=== PATIENT | female | born 1965 | race Caucasian/White ===

== ENCOUNTER 2016-09-04 22:40 | Inpatient (IN) | payer OTHER ==
[~2016-09-04] VITALS: Ht 152.4 cm; Wt 65.2 kg
[2016-09-04] MEDS: DOCUSATE SODIUM 100 MG/10 ML UDC G-TUBE SCH
[2016-09-04 22:40] VITALS: BP 177/89; PULSE 52; RESP 16; TEMP 98.6; O2SAT 100
[2016-09-04] MEDS ORDERED: PROPOFOL 1000 MG/100 ML INJ 100 ML ONE (22:49)
[2016-09-04 22:51] VITALS: O2SAT 100
--- NOTE | 2016-09-04 23:03 | PD ---
HPI Chief Complaint: Stroke Alert Time Seen by Provider: 22:51 Travel History International Travel<30 days: No Contact w/Intl Traveler<30days: No Traveled to known affect area: No History of Present Illness HPI The patient is a 50 year old female who presents to the [facility] emergency department with a history of reportedly having a severe headache that began prior to arrival at [facility] emergency department. The patient arrives intubated, therefore the patient's history is obtained through communications with that facility and the paperwork that was provided by them. The patient's headache was reportedly severe and associated with nausea and vomiting and a decreased level of consciousness, therefore the patient was intubated. The patient underwent a CT scan of the brain that showed a subarachnoid hemorrhage. The patient was accepted for transfer to this facility by Dr. Oswald, the neurosurgeon on-call. According to air 1, the transport helicopter that brought the patient in the patient's blood pressure has had a systolic between 112 and 150. The patient was given a dip revamp bolus for sedation and Ativan for sedation en route to this facility. The patient has not been placed on any blood pressure medication. The patient is unable to provide any other history as she is intubated. The patient is becoming more awake on the ventilator on my arrival to the room. The patient is moving all extremities equally. The patient is breathing about the events. The patient has purposeful motor activity noted with the left upper extremity where she is attempting to reach up to the endotracheal tube. [facility] Past Medical History Narrative Medical The patient's past medical history is reportedly none, except having a gluten allergy. Past Surgical History Narrative Surgical The patient's past surgical history is not able to be obtained. Social History Alcohol Use: Yes (occasional) Tobacco Use: No Substance Use: No Allergies-Medications (Allergen,Severity, Reaction): Coded Allergies: Gluten Flour (Verified Allergy, Unknown, 09/04/16) Narrative Medication None Review of Systems ROS Limitations: Intubated Physical Exam Narrative General: The patient is a well-developed well-nourished female, intubated prior to arrival, in no acute distress. Head and Neck exam: Head is normocephalic atraumatic. Eyes: Pupils are equal round and reactive to light. The patient is not following commands. Therefore, extraocular motion testing was able to be accomplished. Nose: Midline septum with pink mucous membranes Mouth: Dentition unremarkable. Moist mucus membranes. Posterior oropharynx is not erythematous. No tonsillar hypertrophy. Uvula midline. Airway patent. Neck: No palpable lymphadenopathy. No nuchal rigidity. No thyromegaly. Cardiovascular: Sinus bradycardia in the 40s without murmurs, gallops, or rubs. Lungs: Clear to auscultation bilaterally. No wheezes, rhonchi, or rales. Equal breath sounds are noted to be being assisted by ventilator. The patient is noted to have breathing about the event, occasional coughing against the endotracheal tube. Abdomen: Soft, without tenderness to palpation in all 4 quadrants of the abdomen. No guarding, rebound, or rigidity. Normal bowel sounds are audible. Extremities: No clubbing, cyanosis, or edema. 2+ pulses in all 4 extremities. Neurologic Exam: The patient has spontaneous motor activity noted of bilateral upper and lower extremities on examination. The patient has no visible facial asymmetry. Formal neurologic testing otherwise is unable to be accomplished in this patient that was recently sedated with Ativan. The patient is not following commands on exam. Skin Exam: No rash noted. Intact skin that is warm and dry. Data Data Last Documented VS Vital Signs Date Time Temp Pulse Resp B/P Pulse Ox O2 Delivery O2 Flow Rate FiO2 09/04/16 22:51 100 100 09/04/16 22:40 98.6 52 16 177/89 Orders Nicardipine Inj (Cardene Inj) (09/04/16 22:49) Propofol 1000 Mg/100 Ml Inj (Diprivan 10 (09/04/16 22:49) Propofol 1000 Mg/100 Ml Inj (Diprivan 10 (09/04/16 23:00) ^ Infusion (09/04/16 22:51) RASS (09/04/16 22:51) Neurological Rass Scale YANCI.Q2H (09/04/16 22:51) Cta Brain W Iv Contrast W 3d (09/04/16 ) Ed Urine Pregnancytest Poc (09/04/16 22:51) Admit Order (Ed Use Only) (09/04/16 22:56) Invasive Rad Dept Consult (09/04/16 ) Csf Cell Count + Differential (09/04/16 22:57) Glucose, Csf (09/04/16 22:57) Total Protein, Csf (09/04/16 22:57) Csf Culture And Gram Stain (09/04/16 22:57) Consult Neurosurgery (09/04/16 ) MDM Medical Decision Making Medical Screen Exam Complete: Yes Emergency Medical Condition: Yes Medical Record Reviewed: Yes Differential Diagnosis Subarachnoid hemorrhage related to hypertension, versus aneurysm Narrative Course During the course of the patients emergency department visit, the patients history, examination, and differential diagnosis were reviewed. The patient had IV access obtained and blood work sent for analysis prior to arrival at the other facility. The patient was placed on a dust control engineer with oximetry and blood pressure monitoring. The patient was started on a Cardene drip and propofol for sedation per the recommendations of Dr. Oswald. Dr. Oswald and Dr. Garza arrived at the patient's bedside shortly after the patient arrived in the emergency department. A white count of 14.5, hemoglobin 14.5, platelets 273 with neutrophils 43.6, lymphocytes 42.7, glucose is 106, BUN/creatinine 10, creatinine 0.7, sodium 138 , potassium 3.4, chloride 105, bicarbonate 21. PT 11.8, PTT 19.4, INR 1.12 Radiology studies were reviewed from the other facility and remarkable for a CT scan of the brain showing diffuse bilateral subarachnoid hemorrhage demonstrated in the suprasellar cistern, the sylvian fissures, and the prepontine cistern and extending over the convexities more on the left than the right. There is mild hydrocephalus noted. A CTA of the brain was ordered per the recommendations of Dr. Oswald. The patient was admitted to the hospital in critical condition and sent to a bed under the care of the weekend anchor, Dr. Garza. A consultation was also placed to Dr. Oswald. Physician Communication Physician Communication The patient's case was discussed with Dr. Garza and Dr. Oswald in the emergency department. Diagnosis Primary Impression: Subarachnoid hemorrhage Admitting Information Admitting Physician Requests: Admit Rosa Celeste MD Sep 04, 2016 23:03
--- NOTE | 2016-09-04 23:05 | PD.CONS ---
HPI Service neurosurgery Consult Requested By Dr Celeste Reason for Consult Subarachnoid hemorrhage Primary Care Physician Unknown History of Present Illness This is a 67 years old female was transferred to [facility] from [facility] for a subarachnoid hemorrhage. She suddenly developed severe headache and then vomited. No seizure activity. No tongue bitting. No tonic clonic movements. no incontinence of stool or urine. The patient's headache reportedly became more severe and associated with nauseas, vomiting and a decreased level of consciousness, therefore the patient was intubated. She does not follow commands, but moves all 4 extremities purposefully. She underwent a CT scan of the brain at [facility] shows extensive subarachnoid and intraventricular hemorrhage with early obstructive hydrocephalus Review of Systems ROS Limitations: Clinical Condition, Intubated, Altered Mental Status Past Family Social History Allergies: Coded Allergies: Gluten Flour (Verified Allergy, Unknown, 09/04/16) Past Medical History None Past Surgical History None Reported Medications None Active Ordered Medications Current Medications Medications (Trade) Dose Ordered Sig/Van Route PRN Reason Start Time Stop Time Status Last Admin Dose Admin Propofol (Diprivan 1000 Mg/100ml Inj) 100 ml @ 0 mls/hr TITRATE IV 09/04/16 23:00 09/04/16 23:24 IV Flush (NS Flush) 2 ml UNSCH PRN IV FLUSH FLUSH AFTER USING IV ACCESS 09/04/16 23:15 IV Flush (NS Flush) 2 ml BID IV FLUSH 09/05/16 09:00 Acetaminophen (Tylenol) 650 mg Q6H PRN PO PAIN 1-10 AND/OR FEVER >101F 09/04/16 23:15 Morphine Sulfate (Morphine Inj) 2 mg Q2H PRN IV PAIN SCALE 6 TO 10 09/04/16 23:15 Famotidine (Pepcid Inj) 20 mg Q12HR IV PUSH 09/05/16 09:00 Artificial Tears (Tears Naturale Opth Soln) 1 drop TID EACH EYE 09/05/16 09:00 Ondansetron HCl (Zofran Inj) 4 mg Q6H PRN IV NAUSEA OR VOMITING 09/04/16 23:15 Metoclopramide HCl (Reglan Inj) 10 mg Q6H PRN IV NAUSEA OR VOMITING 09/04/16 23:15 Docusate Sodium (Colace Liq) 100 mg Q12H G-TUBE 09/04/16 00:00 Miscellaneous Information 1 Q361D XX 09/04/16 23:15 Chlorhexidine Gluconate (Chlorhexidine 2% Cloth) 3 pack Taper DAILY@04 TOP 09/05/16 04:00 09/01/17 03:59 09/05/16 00:14 Chlorhexidine Gluconate 3 pack 3 pack UNSCH PRN TOP HYGIENIC CARE 09/04/16 23:15 Nicardipine HCl/ Sodium Chloride (Cardene Inj/NS 250 ml Inj) 260 ml @ 0 mls/hr TITRATE IV 09/04/16 23:15 Hydralazine HCl 20 mg 20 mg Q4H PRN IV PUSH SBP>160, DBP>90 09/04/16 23:15 Sodium Chloride 500 ml @ 30 mls/hr Q16H IV 09/05/16 00:15 09/05/16 00:15 Fentanyl Citrate 250 ml @ 0 mls/hr TITRATE IV 09/05/16 00:30 09/05/16 00:20 Levetriacetam 100 ml @ 400 mls/hr Q12H IV 09/05/16 12:00 Sodium Chloride 1,000 ml @ 999 mls/hr Q1H1M IV 09/05/16 01:15 09/05/16 02:15 Sodium Chloride 1,000 ml @ 150 mls/hr Q6H40M IV 09/05/16 02:15 Potassium Chloride 100 ml @ 50 mls/hr Q2H PRN IV For Potassium 2.8 - 3.2 mEq/L 09/05/16 01:45 Potassium Chloride (KCl 20 Meq Premix Inj) 100 ml @ 50 mls/hr Q2H PRN IV For Potassium 2.8 - 3.2 mEq/L 09/05/16 01:45 Potassium Chloride 40 meq 40 meq UNSCH PRN PO/TUBE For Potassium 3.3 - 3.5 mEq/L 09/05/16 01:45 Potassium Chloride 100 ml @ 25 mls/hr UNSCH PRN IV For Potassium 3.3 - 3.5 mEq/L 09/05/16 01:45 Potassium Chloride 100 ml @ 50 mls/hr Q2H PRN IV For Potassium 3.3 - 3.5 mEq/L 09/05/16 01:45 Magnesium Sulfate/ Sodium Chloride (Magnesium Sulfate Inj/NS Inj) 100 ml @ 50 mls/hr UNSCH PRN IV For Magnesium 0.9 - 1.1 mg/dL 09/05/16 01:45 Magnesium Oxide 800 mg 800 mg UNSCH PRN PO For Magnesium 1.2 - 1.6 mg/dL 09/05/16 01:45 Magnesium Sulfate/ Sodium Chloride (Magnesium Sulfate Inj/NS Inj) 100 ml @ 50 mls/hr UNSCH PRN IV For Magnesium 1.2 - 1.6 mg/dL 09/05/16 01:45 Potassium Phosphate 2000 mg 2,000 mg Q4H PRN PO For Phosphorus < 2.5 mg/dL 09/05/16 01:45 Sodium Phosphate/ Sodium Chloride (Sodium Phosphate Inj/NS 250 ml Inj) 250 ml @ 42 mls/hr UNSCH PRN IV For Phosphorus < 2.5 mg/dL 09/05/16 01:45 Potassium Chloride (KCl 40 Meq/30 ml Liq) 40 meq UNSCH PRN PO/TUBE SEE LABEL COMMENTS 09/05/16 01:45 Potassium Phosphate 2000 mg 2,000 mg UNSCH PRN PO/TUBE SEE LABEL COMMENTS 09/05/16 01:45 Potassium Phosphate/Sodium Chloride (Potassium Phosphate Inj/NS 250 ml Inj) 260 ml @ 42 mls/hr UNSCH PRN IV SEE LABEL COMMENTS 09/05/16 01:45 Nimodipine (Nimotop) 60 mg Q4HR PO 09/05/16 04:00 UNV Pravastatin Sodium (Pravachol) 40 mg DAILY PO 09/05/16 09:00 UNV Family History Her brother of hemorrhagic stroke at late 40s, possible aneurysm Physical Exam Vital Signs Vital Signs Date Time Temp Pulse Resp B/P Pulse Ox O2 Delivery O2 Flow Rate FiO2 09/04/16 22:51 100 100 09/04/16 22:40 98.6 52 16 177/89 100 Physical Exam The patient is intubated and sedated. Localizes to painful stimulii with all 4 extremities. Cranial Nerves: Pupils 2-3 equal, round, reactive to light. Eyes appear conjugated. There was no nystagmus, no papilledema. Face musculature appeared symmetrical at rest. Face sensation, olfaction, visual bundy, and hearing cannot be adequately assessed due to his neurological condition. The patient has a corneal reflex. The sternocleidomastoid and trapezius are symmetrical. Cervical Spine: She has nuchal rigidity Motor: His muscle tone and bulk are normal. He moves purposefully all 4 extremities symmetrically. Reflexes: Deep tendon reflexes are 1+ and symmetrical in the biceps, triceps, and brachioradialis, bilaterally, in the upper extremities. In the lower extremities, the patellar and ankles are 1+, bilaterally. There is a bilateral plantar flexion response. There is no clonus or other abnormal reflexes noted. Sensory: On examination there is response to painful stimuli, localizing with both upper and lower extremities. Cerebellar: Examination cannot be adequately assessed due to the patient's neurological condition. Imaging CT brain shows extensive SAH with intraventriculr hemorrhage and early hydrocephalus Assessment and Plan Assessment and Plan 67 year olf female, subarachnid hemorrhage Arce Nixon grade 4, Huertas grade 4 Attending Statement I have reviewed her clinical and further studies. neuro checks in a serial fashion. CTA brain stat to rule out aneurysm A follow-up CT of the head will be obtained in 24 hours. There is oclusion of the ventricular system and I recommend a ventriculostomy catheter. I have discussed with her the details including the step-by- step details of the surgical procedure, its indications, alternatives, risks, and potential complications. Risks and potential complications include, but are not limited to, infection, blood loss, CSF leak, partial or complete loss of sight in one or both eyes, paresis, paralysis, permanent pain or difficulty swallowing, loss of bowel or bladder function, complications from anesthesia, blood clot, stroke, myocardial infarction, or even . Consult interventional neuroradiologist for a cerebral angiography DEBRA. I have called the interventional neuroradiologist concrete handler, Dr Alex Lara and requested a STAT cerebral angiography to be done DEBRA after the CTA, with possible coiling of her aneurysm Respiratory. Full mechanical ventilation in assist control mode of mechanical ventilation, pulmonary toilette, nasotracheal suction, and breathing treatments with nebulizers. Hypertension As needed Cardene to maintain systolic blood pressure less than 150. Chronic anticoagulation. Follow-up coags PT and OT eval Nutrition. NPO Renal. monitor closely urine output, BUN and creatinine Endocrine. Monitor serial Acu checks and SSI for tight control ID monitor for signs of infection Protonix for stress ulcer prophylaxis Vini hose and SCD's for DVT prophylaxis Discussed with critical care, Dr Garza. Further recommendations will be provided depending on the patient clinical evaluation and follow up studies. Jorgito Oswald MD Sep 04, 2016 23:04
[2016-09-04 23:13] VITALS: O2SAT 100
[2016-09-04] MEDS ORDERED: MISCELLANEOUS NURSING INFORMATION XX SCH (23:15)
[2016-09-04] MEDS ORDERED: RESP: ALBUTEROL 2.5 MG/IPRATROPIUM 0.5 MG NEB (PRN) INH (23:15)
[2016-09-04] MEDS ORDERED: NICARDIPINE IV SCH ×2 (23:15)
[2016-09-04] MEDS ORDERED: ACETAMINOPHEN 325 MG TAB PO PRN (23:15)
[2016-09-04] MEDS ORDERED: DEXTROSE 5% IV SCH ×2 (23:15)
[2016-09-04] MEDS ORDERED: CHLORHEXIDINE GLUCONATE 2 % 1 PACK (2 CLOTHS) TOP PRN (23:15)
[2016-09-04] MEDS ORDERED: SODIUM CHLORIDE 0.9% FLUSH 5 ML FLUSH IV FLUSH PRN (23:15)
[2016-09-04] MEDS ORDERED: MORPHINE SULFATE 4 MG/ML INJ IV PRN (23:15)
[2016-09-04] MEDS ORDERED: ONDANSETRON HCL 4 MG/2 ML VIAL IV PRN (23:15)
[2016-09-04] MEDS ORDERED: hydrALAZINE HCL 20 MG/ML VIAL IV PUSH PRN (23:15)
[2016-09-04] MEDS ORDERED: METOCLOPRAMIDE HCL 10 MG/2 ML VIAL IV PRN (23:15)
[2016-09-04] MEDS ORDERED: WATER IV SCH ×2 (23:15)
[2016-09-04] MEDS: PROPOFOL 1000 MG/100 ML INJ 100 ML IV SCH (23:24)
--- NOTE | 2016-09-04 23:29 | HHI.HP ---
HPI Service Critical Care Medicine Primary Care Physician Unknown Admission Diagnosis Subarachnoid hemorrhage Diagnosis: Travel History International Travel<30 Days: No Contact w/Intl Traveler <30 Da: No Traveled to Known Affected Are: No History of Present Illness 50 year old female who presents to the [facility] emergency department with a severe headache that began prior to arrival at [facility] emergency department. The patient's headache was reportedly severe and associated with nausea and vomiting and a decreased level of consciousness, therefore the patient was intubated. She underwent a CT scan of the brain that showed a subarachnoid hemorrhage and was accepted for transfer by Dr. Oswald, the neurosurgeon on-call. Review of Systems ROS Unable to obtain patient is sedated and intubated Past Family Social History Allergies: Coded Allergies: Gluten Flour (Verified Allergy, Unknown, 09/04/16) Past Medical History None Past Surgical History None Reported Medications Reported Meds & Active Scripts Active Active Prescriptions or Reported Medications Unobtainable Active Ordered Medications Current Medications Medications (Trade) Dose Ordered Sig/Van Route PRN Reason Start Time Stop Time Status Last Admin Dose Admin Propofol (Diprivan 1000 Mg/100ml Inj) 100 ml @ 0 mls/hr TITRATE IV 09/04/16 23:00 09/04/16 23:24 IV Flush (NS Flush) 2 ml UNSCH PRN IV FLUSH FLUSH AFTER USING IV ACCESS 09/04/16 23:15 IV Flush (NS Flush) 2 ml BID IV FLUSH 09/05/16 09:00 Acetaminophen (Tylenol) 650 mg Q6H PRN PO PAIN 1-10 AND/OR FEVER >101F 09/04/16 23:15 Morphine Sulfate (Morphine Inj) 2 mg Q2H PRN IV PAIN SCALE 6 TO 10 09/04/16 23:15 Famotidine (Pepcid Inj) 20 mg Q12HR IV PUSH 09/05/16 09:00 Artificial Tears (Tears Naturale Opth Soln) 1 drop TID EACH EYE 09/05/16 09:00 Ondansetron HCl (Zofran Inj) 4 mg Q6H PRN IV NAUSEA OR VOMITING 09/04/16 23:15 Metoclopramide HCl (Reglan Inj) 10 mg Q6H PRN IV NAUSEA OR VOMITING 09/04/16 23:15 Docusate Sodium (Colace Liq) 100 mg Q12H G-TUBE 09/04/16 00:00 Miscellaneous Information 1 Q361D XX 09/04/16 23:15 Chlorhexidine Gluconate (Chlorhexidine 2% Cloth) 3 pack Taper DAILY@04 TOP 09/05/16 04:00 09/01/17 03:59 09/05/16 00:14 Chlorhexidine Gluconate 3 pack 3 pack UNSCH PRN TOP HYGIENIC CARE 09/04/16 23:15 Nicardipine HCl/ Sodium Chloride (Cardene Inj/NS 250 ml Inj) 260 ml @ 0 mls/hr TITRATE IV 09/04/16 23:15 Hydralazine HCl 20 mg 20 mg Q4H PRN IV PUSH SBP>160, DBP>90 09/04/16 23:15 Sodium Chloride 500 ml @ 30 mls/hr Q16H IV 09/05/16 00:15 09/05/16 00:15 Fentanyl Citrate 250 ml @ 0 mls/hr TITRATE IV 09/05/16 00:30 09/05/16 00:20 Levetriacetam 100 ml @ 400 mls/hr Q12H IV 09/05/16 12:00 Sodium Chloride 1,000 ml @ 999 mls/hr Q1H1M IV 09/05/16 01:15 09/05/16 02:15 Sodium Chloride 1,000 ml @ 150 mls/hr Q6H40M IV 09/05/16 02:15 Potassium Chloride 100 ml @ 50 mls/hr Q2H PRN IV For Potassium 2.8 - 3.2 mEq/L 09/05/16 01:45 Potassium Chloride (KCl 20 Meq Premix Inj) 100 ml @ 50 mls/hr Q2H PRN IV For Potassium 2.8 - 3.2 mEq/L 09/05/16 01:45 Potassium Chloride 40 meq 40 meq UNSCH PRN PO/TUBE For Potassium 3.3 - 3.5 mEq/L 09/05/16 01:45 Potassium Chloride 100 ml @ 25 mls/hr UNSCH PRN IV For Potassium 3.3 - 3.5 mEq/L 09/05/16 01:45 Potassium Chloride 100 ml @ 50 mls/hr Q2H PRN IV For Potassium 3.3 - 3.5 mEq/L 09/05/16 01:45 Magnesium Sulfate/ Sodium Chloride (Magnesium Sulfate Inj/NS Inj) 100 ml @ 50 mls/hr UNSCH PRN IV For Magnesium 0.9 - 1.1 mg/dL 09/05/16 01:45 Magnesium Oxide 800 mg 800 mg UNSCH PRN PO For Magnesium 1.2 - 1.6 mg/dL 09/05/16 01:45 Magnesium Sulfate/ Sodium Chloride (Magnesium Sulfate Inj/NS Inj) 100 ml @ 50 mls/hr UNSCH PRN IV For Magnesium 1.2 - 1.6 mg/dL 09/05/16 01:45 Potassium Phosphate 2000 mg 2,000 mg Q4H PRN PO For Phosphorus < 2.5 mg/dL 09/05/16 01:45 Sodium Phosphate/ Sodium Chloride (Sodium Phosphate Inj/NS 250 ml Inj) 250 ml @ 42 mls/hr UNSCH PRN IV For Phosphorus < 2.5 mg/dL 09/05/16 01:45 Potassium Chloride (KCl 40 Meq/30 ml Liq) 40 meq UNSCH PRN PO/TUBE SEE LABEL COMMENTS 09/05/16 01:45 Potassium Phosphate 2000 mg 2,000 mg UNSCH PRN PO/TUBE SEE LABEL COMMENTS 09/05/16 01:45 Potassium Phosphate/Sodium Chloride (Potassium Phosphate Inj/NS 250 ml Inj) 260 ml @ 42 mls/hr UNSCH PRN IV SEE LABEL COMMENTS 09/05/16 01:45 Nimodipine (Nimotop) 60 mg Q4HR PO 09/05/16 04:00 UNV Pravastatin Sodium (Pravachol) 40 mg DAILY PO 09/05/16 09:00 UNV Family History Her brother of hemorrhagic stroke at late 40s Social History Negative 3 Physical Exam Vital Signs Vital Signs Date Time Temp Pulse Resp B/P Pulse Ox O2 Delivery O2 Flow Rate FiO2 09/04/16 23:13 100 50 09/04/16 22:51 100 100 09/04/16 22:40 98.6 52 16 177/89 100 09/04/16 22:40 16 100 Ventilator Physical Exam GENERAL: Well-nourished, well-developed critically ill patient in coma SKIN: Warm and dry. HEAD: Normocephalic. EYES: No scleral icterus. No injection or drainage. Pupils are 2 and reactive NECK: Supple, trachea midline. No JVD or lymphadenopathy. CARDIOVASCULAR: Regular rate and rhythm without murmurs, gallops, or rubs. RESPIRATORY: Breath sounds equal bilaterally. No accessory muscle use. GASTROINTESTINAL: Abdomen soft, non-tender, nondistended. MUSCULOSKELETAL: No cyanosis, or edema. BACK: Nontender without obvious deformity. No CVA tenderness. EXTREMITIES: Laboratory Laboratory Tests Test 09/04/16 09/04/16 09/05/16 09/05/16 23:15 23:30 00:10 01:22 Nasal Screen MRSA (PCR) NEGATIVE CSF Volume (Tube 1) 2.0 ML CSF Supernatant Color (tube 1) CLEAR CSF Gross Blood (Tube 1) 4+ CSF WBC (Tube 1) 170 /MM3 CSF RBC (Tube 1) 133092 /MM3 CSF Neutrophils 41 % CSF Lymphocytes 48 % CSF Eosinophils 11 % CSF Glucose 80 MG/DL CSF Total Protein 393.6 MG/DL White Blood Count 15.2 TH/MM3 Red Blood Count 3.67 MIL/MM3 Hemoglobin 11.4 GM/DL Hematocrit 33.3 % Mean Corpuscular Volume 90.8 FL Mean Corpuscular Hemoglobin 31.0 PG Mean Corpuscular Hemoglobin 34.2 % Concent Red Cell Distribution Width 12.4 % Platelet Count 173 TH/MM3 Mean Platelet Volume 8.1 FL Prothrombin Time 12.3 SEC Prothromb Time International 1.1 RATIO Ratio Activated Partial 24.7 SEC Thromboplast Time Sodium Level 142 MEQ/L Potassium Level 3.1 MEQ/L Chloride Level 109 MEQ/L Carbon Dioxide Level 23.1 MEQ/L Anion Gap 10 MEQ/L Blood Urea Nitrogen 9 MG/DL Creatinine 0.70 MG/DL Estimat Glomerular Filtration 89 ML/MIN Rate Random Glucose 138 MG/DL Serum Osmolality 304 MOSM/KG Calcium Level 6.7 MG/DL Protein Corrected Calcium 7.7 MG/DL Phosphorus Level 2.0 MG/DL Magnesium Level 1.4 MG/DL Total Bilirubin 1.3 MG/DL Aspartate Amino Transf 33 U/L (AST/SGOT) Alanine Aminotransferase 23 U/L (ALT/SGPT) Alkaline Phosphatase 54 U/L Total Protein 5.1 GM/DL Albumin 2.9 GM/DL Blood Type O POSITIVE Antibody Screen NEGATIVE Blood Bank Comment Blood Gas Puncture Site MALENA Blood Gas Patient Temperature 98.6 Blood Gas HCO3 22 mmol/L Blood Gas Base Excess -1.8 mmol/L Blood Gas Oxygen Saturation 98 % Arterial Blood pH 7.40 Arterial Blood Partial 37 mmHg Pressure CO2 Arterial Blood Partial 194 mmHg Pressure O2 Arterial Blood Oxygen Content 16.6 Vol % Arterial Blood 0.8 % Carboxyhemoglobin Arterial Blood Methemoglobin 1.0 % Blood Gas Hemoglobin 11.8 G/DL Oxygen Delivery Device VENTILATOR Blood Gas Ventilator Setting AC14/450/+5 Blood Gas Inspired Oxygen 40 % Assessment and Plan Problem List: (1) Subarachnoid hemorrhage ICD Code: I60.9 Status: Acute Assessment and Plan Respiratory failure - Intubated for an airway protection - No weaning until neurologically improved - No weaning until ICP well-controlled - Attempt normocapnia - CXR and ABG daily Subarachnoid hemorrhage - Arce and Cardoza grade IV - Huertas grade IV - Blood pressure control - CT angiogram a.m. - Further intervention pending based on angiographic findings - Nimodipine - Pravachol - Daily TCD's Brain edema - Due to above - External ventricular drain in place to monitor - Hypertonic saline - 23% sodium chloride when necessary Hydrocephalus - EVD in place - Further management per neurosurgeon Hypertension - Nicardipine drip - SBP goal less than 140 DVT GI prophylaxis - Teds SCDs Pepcid Critical Care: The total critical care time was 55 minutes. Time to perform other separately billable procedures was not included in the critical care time. Ivan Garza MD Sep 04, 2016 23:28
[2016-09-04] MEDS ORDERED: MANNITOL INJ 50 ML ONE (23:48)
[2016-09-05] VITALS (11 sets, daily range): BP systolic 137–170; BP diastolic 63–68; PULSE 44–73; RESP 14–17; TEMP 93.1–98.5; O2SAT 100
[2016-09-05] MEDS ORDERED: fentaNYL CITRATE 250 MCG/5 ML AMP IV PUSH ONE
[2016-09-05] MEDS: CHLORHEXIDINE GLUCONATE 2 % 1 PACK (2 CLOTHS) TOP SCH (00:14)
[2016-09-05] MEDS: 3% SALINE INJ 500 ML IV SCH ×2 (00:15→20:01)
[2016-09-05 00:17] LABS: GROSS BLOOD TUBE #1 4+ (0); SUPERNATE COLOR TUBE #1 CLEAR (CLEAR)
[2016-09-05 00:18] LABS: WBC TUBE #1 170 /MM3 (0-10)
[2016-09-05] MEDS: fentaNYL 2,500 MCG/NS 250 ML IV SCH ×2 (00:20→09:05)
[2016-09-05 00:44] LABS: CSF EOSINOPHILS 11 %; CSF LYMPHOCYTES 48 %; CSF NEUTROPHILS 41 %
[2016-09-05] MEDS ORDERED: levETIRAcetam 1000 MG INJ 100 ML IV ONE (00:45)
[2016-09-05] MEDS ORDERED: SODIUM CHLOR 0.9% 1000 ML INJ 1,000 ML IV SCH ×2 (01:15→13:27)
[2016-09-05 01:25] LABS: APTT (PATIENT) 24.7 SEC (24.3-30.1); INTERNATIONAL NORMALIZED RATIO 1.1 RATIO; PROTHROMBIN TIME - PATIENT 12.3 SEC (9.8-11.6)
[2016-09-05 01:28] LABS: BLOOD GAS BASE EXCESS -1.8 mmol/L (-2-2); BLOOD GAS CARBOXYHEMOGLOBIN 0.8 % (0-4); BLOOD GAS HCO3 22 mmol/L (22-26); BLOOD GAS O2 HGB SATURATION 98 % (90-100); BLOOD GAS OXYGEN CONTENT 16.6 Vol % (12.0-20.0); BLOOD GAS PCO2 37 mmHg (38-42); BLOOD GAS PO2 194 mmHg (61-120); BLOOD GAS TOTAL HGB 11.8 G/DL (12.0-16.0); CRITICAL VALUE NO; DRAW SITE ALINE; FIO2 40 %; OXYGEN DEVICE VENTILATOR; STAT NO; TEMP CORR TO 98.6; ULNAR PULSE PRESENT; VENT SETTINGS AC14/450/+5
[2016-09-05 01:32] LABS: HEMATOCRIT 33.3 % (35.0-46.0); MEAN CELL VOLUME 90.8 FL (80.0-100.0); MEAN CORPUSCULAR HGB CONC 34.2 % (32.0-36.0); PLATELET COUNT 173 TH/MM3 (150-450); RED BLOOD COUNT 3.67 MIL/MM3 (4.00-5.30); RED CELL DISTRIBUTION WIDTH 12.4 % (11.6-17.2); REVIEW FLAG FINAL; WHITE BLOOD COUNT 15.2 TH/MM3 (4.0-11.0)
[2016-09-05 01:33] LABS: BICARBONATE 23.1 MEQ/L (21.0-32.0); CALCIUM-PROTEIN CORRECTED 7.7 MG/DL (8.5-10.1); MAGNESIUM 1.4 MG/DL (1.5-2.5); POTASSIUM 3.1 MEQ/L (3.5-5.1); TOTAL BILIRUBIN ADULT 1.3 MG/DL (0.2-1.0)
[2016-09-05] MEDS ORDERED: LIDOCAINE HCL 2% 100 MG/5 ML SYRINGE ONE ×2 (01:44→10:03)
[2016-09-05] MEDS ORDERED: ATROPINE SULFATE 1 MG/10 ML SYRINGE ONE ×2 (01:44→10:03)
[2016-09-05] MEDS ORDERED: EPINEPHrine HCL (1:10,000) 1 MG/10 ML SYRINGE ONE ×2 (01:44→10:03)
[2016-09-05] MEDS ORDERED: POTASSIUM CHLOR 40 MEQ PREMIX 100 ML IV PRN (01:45)
[2016-09-05] MEDS ORDERED: POTASSIUM PHOSPHATE MONOBASIC 500 MG TAB PO/TUBE PRN (01:45)
[2016-09-05] MEDS ORDERED: MAGNESIUM SULFATE INJ 4 GM in SODIUM CHLORIDE 0.9% INJ 92 ML IV PRN (01:45)
[2016-09-05] MEDS ORDERED: POTASSIUM PHOSPHATE MONOBASIC 500 MG TAB PO PRN (01:45)
[2016-09-05] MEDS ORDERED: SODIUM PHOSPHATE INJ 30 MMOL in SODIUM CHLOR 0.9% 250 ML INJ 240 ML IV PRN (01:45)
[2016-09-05] MEDS ORDERED: MAGNESIUM SULFATE INJ 2 GM in SODIUM CHLORIDE 0.9% INJ 96 ML IV PRN (01:45)
[2016-09-05] MEDS ORDERED: MAGNESIUM OXIDE 400 MG TAB PO PRN (01:45)
[2016-09-05] MEDS ORDERED: POTASSIUM PHOSPHATE INJ 30 MMOL in SODIUM CHLOR 0.9% 250 ML INJ 250 ML IV PRN (01:45)
[2016-09-05] MEDS ORDERED: POTASSIUM CL 40 MEQ/30 ML LIQ UDC PO/TUBE PRN ×2 (01:45)
[2016-09-05] MEDS ORDERED: POTASSIUM CHLOR 20 MEQ PREMIX 100 ML IV PRN ×3 (01:45→15:30)
[2016-09-05] MEDS ORDERED: IOHEXOL 350 MG/ML 10 ML VIAL (for RAD DIAG) IV ONE (01:58)
--- NOTE | 2016-09-05 02:18 | PD.PROCEDR ---
Procedure Note Procedure Central line A time-out was completed verifying correct patient, procedure, site, positioning , and special equipment if applicable. The patient was placed in a dependent position appropriate for central line placement based on the vein to be cannulated. The patients right neck was prepped and draped in sterile fashion. 1% Lidocaine was used to anesthetize the surrounding skin area. A triple lumen 9 -Faroese Cordis catheter was introduced into the the internal jugular vein using the Seldinger technique and under ultrasound guidance. The catheter was threaded smoothly over the guide wire and appropriate blood return was obtained. Each lumen of the catheter was evacuated of air and flushed with sterile saline. The catheter was then sutured in place to the skin and a sterile dressing applied. Perfusion to the extremity distal to the point of catheter insertion was checked and found to be adequate. Estimated Blood Loss: 1ml The patient tolerated the procedure well and there were no complications. Ivan Garza MD Sep 05, 2016 02:18
--- NOTE | 2016-09-05 02:18 | PD.PROCEDR ---
Procedure Note Procedure Arterial line A time-out was completed verifying correct patient, procedure, site, positioning , and special equipment if applicable. Allens test was performed to ensure adequate perfusion. The patients right wrist was prepped and draped in sterile fashion. 1% Lidocaine was used to anesthetize the area. A 18G Arrow arterial line was introduced into the radial artery. The catheter was threaded over the guide wire and the needle was removed with appropriate pulsatile blood return. The catheter was then sutured in place to the skin and a sterile dressing applied. Perfusion to the extremity distal to the point of catheter insertion was checked and found to be adequate. Estimated Blood Loss: 1ml The patient tolerated the procedure well and there were no complications. Ivan Garza MD Sep 05, 2016 02:18
[2016-09-05] MEDS ORDERED: NOREPINEPHRINE-DEXTROSE DRIP 250 ML IV ONE (02:57)
[2016-09-05] MEDS ORDERED: NOREPINEPHRINE 4 MG/4 ML AMP ONE (02:59)
--- NOTE | 2016-09-05 03:01 | RADRPT ---
EXAM DATE/TIME: 09/05/2016 01:58 [facility] COMPARISON: No previous studies available for comparison. INDICATIONS : Subarachnoid hemorrhage. Transfer from [facility]. IV CONTRAST: 95 cc Omnipaque 350 (iohexol) IV RADIATION DOSE: 14.91 CTDIvol (mGy) MEDICAL HISTORY : None SURGICAL HISTORY : None. ENCOUNTER: Initial ACUITY: 1 day PAIN SCALE: Non-responsive LOCATION: cranial TECHNIQUE: Volumetric scanning was performed using a multi-row detector CT scanner. The data was post processed with a variety of visualization algorithms including full volume maximum intensity projection, multi -planar sliding thin slab reformation, curved planar reformation, and surface rendering techniques. Using automated exposure control and adjustment of the mA and/or kV according to patient size, radiat ion dose was kept as low as reasonably achievable to obtain optimal diagnostic quality images. FINDINGS: There is an approximately 4.4 mm aneurysm on the right side near the origin of the right posterior co mmunicating artery. There is an adjacent hematoma measuring about 2.3 cm as well as extensive subarac hnoid hemorrhage. The distal internal carotid arteries, basilar artery and anterior, middle and posterior cerebral esvin jason are patent. Vasospasm is noted. Right frontal ventriculostomy tube tip in right lateral ventricl e. Left lateral ventricular system is mildly enlarged. CONCLUSION: 1. 4.4 mm aneurysm near origin of right posterior communicating artery with adjacent hematoma and ext ensive subarachnoid hemorrhage. 2. Right frontal ventriculostomy tube tip in right lateral ventricle. Left lateral ventricle is mildl y enlarged. Right lateral ventricle is decompressed. 3. Intracranial arterial vasospasm. Kun Montiel MD on September 05, 2016 at 2:50 Board Certified Radiologist. This report was verified electronically.
[2016-09-05] MEDS ORDERED: NOREPINEPHRINE INJ 4 MG in SODIUM CHLOR 0.9% 250 ML INJ 250 ML IV SCH ×2 (03:15→04:00)
[2016-09-05] MEDS ORDERED: SODIUM CHLOR 0.9% 1000 ML INJ 1,999 ML IV ONE (03:15)
[2016-09-05] MEDS: SODIUM CHLOR 0.9% 1000 ML INJ 1,000 ML IV SCH ×2 (03:32→08:27)
[2016-09-05] MEDS: niMODipine 30 MG CAP PO SCH ×6 (04:00→23:48)
[2016-09-05] MEDS ORDERED: SODIUM CHLORIDE 23.4% INJ 120 MEQ in SYRINGE/BAG 1 EA IV ONE (04:15)
[2016-09-05] MEDS: PROPOFOL 1000 MG/100 ML INJ 100 ML IV SCH ×2 (04:28→08:38)
[2016-09-05] MEDS ORDERED: MANNITOL 12.5 GM/50 ML VIAL IV ONE ×3 (04:45→14:30)
[2016-09-05 05:44] LABS: AUTOMATED NEUTROPHIL # 18.4 TH/MM3 (1.8-7.7); BASOPHIL # 0.1 TH/MM3 (0-0.2); BASOPHIL % 0.2 % (0.0-2.0); EOSINOPHIL % 0.2 % (0.0-4.0); HEMO FLAGS DIFF FINAL; LYMPH % 5.9 % (9.0-44.0); LYMPHOCYTE # 1.2 TH/MM3 (1.0-4.8); MEAN CELL VOLUME 90.6 FL (80.0-100.0); MEAN CORPUSCULAR HEMOGLOBIN 31.2 PG (27.0-34.0); MEAN CORPUSCULAR HGB CONC 34.5 % (32.0-36.0); MONO % 6.6 % (0.0-8.0); NEUT % 87.1 % (16.0-70.0); PLATELET COUNT 217 TH/MM3 (150-450); RED BLOOD COUNT 4.08 MIL/MM3 (4.00-5.30); RED CELL DISTRIBUTION WIDTH 12.2 % (11.6-17.2); WHITE BLOOD COUNT 21.1 TH/MM3 (4.0-11.0)
[2016-09-05 05:59] LABS: INTERNATIONAL NORMALIZED RATIO 1.1 RATIO
[2016-09-05 06:13] LABS: BICARBONATE 22.3 MEQ/L (21.0-32.0); MAGNESIUM 1.7 MG/DL (1.5-2.5); TOTAL BILIRUBIN ADULT 1.6 MG/DL (0.2-1.0)
[2016-09-05] MEDS ORDERED: DEXTROSE 50% IN WATER 50 ML VIAL(D50) IV PUSH PRN (07:30)
[2016-09-05] MEDS: FAMOTIDINE 20 MG/2 ML VIAL IV PUSH SCH ×2 (08:26→20:47)
[2016-09-05] MEDS: PRAVASTATIN SOD 40 MG TAB PO SCH (08:26)
[2016-09-05] MEDS: ARTIFICIAL TEARS OPTH SOLN 15 ML BTL EACH EYE SCH ×3 (08:27→18:00)
[2016-09-05] MEDS ORDERED: SODIUM CHLORIDE 0.9% FLUSH 5 ML FLUSH IV FLUSH SCH (09:00)
--- NOTE | 2016-09-05 10:06 | HHI.NSPN ---
(Sarah Thompson) Note Status Status: Progress Note (Sarah Thompson) Interval History Interval History This is a 67 years old female was transferred to [facility] from [facility] for a subarachnoid hemorrhage. She suddenly developed severe headache and then vomited. No seizure activity. No tongue bitting. No tonic clonic movements. no incontinence of stool or urine. CT scan of the brain done at [facility] in [place] shows extensive subarachnoid and intraventricular hemorrhage with early obstructive hydrocephalus. 09/05: s/p placement of ventriculostomy drain, CTA shows right PCOM aneurysm, ICPs <20 (Sarah Thompson) Labs, Micro, & Vital Signs Results Date Time Temp Pulse Resp B/P Pulse Ox O2 Delivery O2 Flow Rate FiO2 09/05/16 08:40 100 40 09/05/16 08:00 44 09/05/16 08:00 98.5 73 14 144/65 100 09/05/16 07:00 Mechanical Ventilator 09/05/16 03:23 100 40 09/05/16 01:50 100 100 09/04/16 23:13 100 50 09/04/16 22:51 100 100 09/04/16 22:40 98.6 52 16 177/89 100 09/04/16 22:40 16 100 Ventilator 09/05/16 07:00 Intake Total 2742 ml Output Total 2830 ml Balance -88 ml Constitutional Vital Signs Date Time Temp Pulse Resp B/P Pulse Ox O2 Delivery O2 Flow Rate FiO2 09/05/16 08:40 100 40 09/05/16 08:00 44 09/05/16 08:00 98.5 73 14 144/65 100 09/05/16 07:00 Mechanical Ventilator 09/05/16 03:23 100 40 09/05/16 01:50 100 100 09/04/16 23:13 100 50 09/04/16 22:51 100 100 09/04/16 22:40 98.6 52 16 177/89 100 09/04/16 22:40 16 100 Ventilator 09/05/16 07:00 Intake Total 2742 ml Output Total 2830 ml Balance -88 ml (Sarah Thompson) Review of Systems/Exam Exam Ms. Lopez is intubated and mildly sedated on fentanyl, she does not open eyes or follow commands. Grimaces to nailbed pressure. Right ventriculostomy drain draining bloody CSF. Cranial nerve examination: pupils 2 mm b/l. Conjugate gaze. Motor: no spontaneous movements Sensorimotor: no withdrawals to pain x 4 Bilateral plantars silent Cerebellar exam cannot be assessed due to clinical condition (Sarah Thompson ) Medications Current Medications Current Medications Medications (Trade) Dose Ordered Sig/Van Route PRN Reason Start Time Stop Time Status Last Admin Dose Admin Propofol (Diprivan 1000 Mg/100ml Inj) 100 ml @ 0 mls/hr TITRATE IV 09/04/16 23:00 09/05/16 08:38 IV Flush (NS Flush) 2 ml UNSCH PRN IV FLUSH FLUSH AFTER USING IV ACCESS 09/04/16 23:15 IV Flush (NS Flush) 2 ml BID IV FLUSH 09/05/16 09:00 09/05/16 08:26 Acetaminophen (Tylenol) 650 mg Q6H PRN PO PAIN 1-10 AND/OR FEVER >101F 09/04/16 23:15 Famotidine (Pepcid Inj) 20 mg Q12HR IV PUSH 09/05/16 09:00 09/05/16 08:26 Artificial Tears (Tears Naturale Opth Soln) 1 drop TID EACH EYE 09/05/16 09:00 09/05/16 08:27 Ondansetron HCl (Zofran Inj) 4 mg Q6H PRN IV NAUSEA OR VOMITING 09/04/16 23:15 Docusate Sodium (Colace Liq) 100 mg Q12H G-TUBE 09/04/16 00:00 Miscellaneous Information 1 Q361D XX 09/04/16 23:15 Chlorhexidine Gluconate (Chlorhexidine 2% Cloth) 3 pack Taper DAILY@04 TOP 09/05/16 04:00 09/01/17 03:59 09/05/16 00:14 Chlorhexidine Gluconate 3 pack 3 pack UNSCH PRN TOP HYGIENIC CARE 09/04/16 23:15 Nicardipine HCl/ Sodium Chloride (Cardene Inj/NS 250 ml Inj) 260 ml @ 0 mls/hr TITRATE IV 09/04/16 23:15 Hydralazine HCl 20 mg 20 mg Q4H PRN IV PUSH SBP>160, DBP>90 09/04/16 23:15 Sodium Chloride 500 ml @ 30 mls/hr Q16H IV 09/05/16 00:15 09/05/16 00:15 Fentanyl Citrate 250 ml @ 0 mls/hr TITRATE IV 09/05/16 00:30 09/05/16 09:05 Levetriacetam 100 ml @ 400 mls/hr Q12H IV 09/05/16 12:00 Sodium Chloride 1,000 ml @ 150 mls/hr Q6H40M IV 09/05/16 02:15 09/05/16 08:27 Potassium Chloride 100 ml @ 50 mls/hr Q2H PRN IV For Potassium 2.8 - 3.2 mEq/L 09/05/16 01:45 Potassium Chloride (KCl 20 Meq Premix Inj) 100 ml @ 50 mls/hr Q2H PRN IV For Potassium 2.8 - 3.2 mEq/L 09/05/16 01:45 Potassium Chloride 40 meq 40 meq UNSCH PRN PO/TUBE For Potassium 3.3 - 3.5 mEq/L 09/05/16 01:45 Potassium Chloride 100 ml @ 25 mls/hr UNSCH PRN IV For Potassium 3.3 - 3.5 mEq/L 09/05/16 01:45 Potassium Chloride 100 ml @ 50 mls/hr Q2H PRN IV For Potassium 3.3 - 3.5 mEq/L 09/05/16 01:45 Magnesium Sulfate/ Sodium Chloride (Magnesium Sulfate Inj/NS Inj) 100 ml @ 50 mls/hr UNSCH PRN IV For Magnesium 0.9 - 1.1 mg/dL 09/05/16 01:45 Magnesium Oxide 800 mg 800 mg UNSCH PRN PO For Magnesium 1.2 - 1.6 mg/dL 09/05/16 01:45 Magnesium Sulfate/ Sodium Chloride (Magnesium Sulfate Inj/NS Inj) 100 ml @ 50 mls/hr UNSCH PRN IV For Magnesium 1.2 - 1.6 mg/dL 09/05/16 01:45 Potassium Phosphate 2000 mg 2,000 mg Q4H PRN PO For Phosphorus < 2.5 mg/dL 09/05/16 01:45 Sodium Phosphate/ Sodium Chloride (Sodium Phosphate Inj/NS 250 ml Inj) 250 ml @ 42 mls/hr UNSCH PRN IV For Phosphorus < 2.5 mg/dL 09/05/16 01:45 Potassium Chloride (KCl 40 Meq/30 ml Liq) 40 meq UNSCH PRN PO/TUBE SEE LABEL COMMENTS 09/05/16 01:45 Potassium Phosphate 2000 mg 2,000 mg UNSCH PRN PO/TUBE SEE LABEL COMMENTS 09/05/16 01:45 Potassium Phosphate/Sodium Chloride (Potassium Phosphate Inj/NS 250 ml Inj) 260 ml @ 42 mls/hr UNSCH PRN IV SEE LABEL COMMENTS 09/05/16 01:45 Nimodipine (Nimotop) 60 mg Q4HR PO 09/05/16 04:00 09/05/16 08:26 Pravastatin Sodium 40 mg 40 mg DAILY PO 09/05/16 09:00 09/05/16 08:26 Norepinephrine Bitartrate/Sodium Chloride (Levophed Inj/NS 250 ml Inj) 254 ml @ 0 mls/hr TITRATE IV 09/05/16 04:00 Dextrose (D50w (Vial) Inj) 25 ml UNSCH PRN IV PUSH HYPOGLYCEMIA-SEE COMMENTS 09/05/16 07:30 Insulin Human Regular (NovoLIN R SUPPLEMENTAL SCALE) 1 Q6HR SQ 09/05/16 12:00 (Sarah Thompson) Medical Decision Making MDM Remarks 50 y/o with subarachnoid hemorrhage, right PCOM aneurysm, s/p placement of ventriculostomy drain (Sarah Thompson) Plan Plan Remarks for endovascular coiling, ventriculostomy draining with ICP monitoring Nimodipine cont bp control nonchemical DVT prophylaxis in view of ICH close neuro checks (Sarah Thompson) Attending Statement I have reviewed her CTA brain, with evidence of a PCOM aneurysm She was taken for a cerebral angiography. Apparently when she was placed in the angiogram table she re bleed. ANgiography and coiling done. Follow up CT showed increased hemorrhage with a right subdural hematoma and midline shift with evidence of herniation. She became anisocoric. Her only chances of survival is a prompy surgical decompression with a right hemicraniectomy. I have discussed with her the details including the [id number] details of the surgical procedure , its indications, alternatives, risks, and potential complications. Risks and potential complications include, but are not limited to, infection, blood loss, CSF leak, partial or complete loss of sight in one or both eyes, paresis, paralysis, permanent pain or difficulty swallowing, loss of bowel or bladder function, complications from anesthesia, blood clot, stroke, myocardial infarction, or even . The exam, history, and the medical decision-making described in the above note were completed with the assistance of the mid-level provider. I reviewed and agree with the findings presented. I attest that I had a [id number] encounter with the patient on the same day, and personally performed and documented my assessment and findings in the medical record. (Jorgito Oswald MD) Sarah Thompson Sep 05, 2016 10:06 Jorgito Oswald MD Sep 05, 2016 23:10
[2016-09-05] MEDS ORDERED: VERAPAMIL INJ 10 MG/4 ML VIAL ONE (11:35)
[2016-09-05] MEDS: DOCUSATE SODIUM 100 MG/10 ML UDC G-TUBE SCH ×3 (12:00→23:48)
[2016-09-05] MEDS ORDERED: levETIRAcetam 1000 MG INJ 100 ML IV SCH (12:00)
[2016-09-05] MEDS ORDERED: PROPOFOL 200 MG/20 ML AMP IV ONE (12:00)
[2016-09-05] MEDS: INSULIN NovoLIN REGULAR SUPPLEMENTAL SCALE SQ SCH ×3 (12:00→23:46)
[2016-09-05] MEDS ORDERED: SODIUM CHLOR 0.9% 1000 ML INJ 2,000 ML IV ONE (12:00)
[2016-09-05] MEDS ORDERED: SODIUM CHLORID 0.9% 500 ML INJ 500 ML IV ONE ×2 (12:00→19:00)
[2016-09-05] MEDS ORDERED: PROPOFOL 500 MG/50 ML BTL IV ONE (12:00)
[2016-09-05] MEDS ORDERED: PHENYLEPH/NS 1000 MCG/10 ML SYR IV ONE (12:00)
[2016-09-05] MEDS ORDERED: PROTAMINE SULFATE 50 MG/5 ML VIAL ONE (13:10)
[2016-09-05] MEDS ORDERED: ceFAZolin 2 GM PREMIX 50 ML ONE ×2 (13:22→14:27)
--- NOTE | 2016-09-05 13:29 | PD.RAD ---
Post Procedure Progress Note Pre Procedure Diagnosis: (1) Subarachnoid hemorrhage Post Procedure Diagnosis: (1) Subarachnoid hemorrhage Procedure Date: Sep 05, 2016 Supervising Radiologist: Arnie Knutson Anesthesia: General, Local Plan of Activity Patient Condition: Critical Additional Comments: 50 y/o with a ruptured PComm aneurism Grade V Successful coiling of the aneurism with complete exclusion. Full dictated report to follow See PACS Report for procedural detail/treatment Arnie Knutson MD Sep 05, 2016 13:29
--- NOTE | 2016-09-05 13:32 | HHI.CCPN ---
Subjective Remarks/Hospital Course Hospital Course: 50 year old female who presents to the [facility] emergency department with a severe headache that began prior to arrival at [facility] emergency department. The patient's headache was reportedly severe and associated with nausea and vomiting and a decreased level of consciousness, therefore the patient was intubated. She underwent a CT scan of the brain that showed a subarachnoid hemorrhage and was accepted for transfer by Dr. Oswald, the neurosurgeon on-call. Subjective: 09/05: taken to IR for coiling of aneurysm. however, before coiling took place, ICPs suddenly elevated, followed by severe hypertension, bradycardia, and pupilary change. emergently controlled bp, continued to move forward with coiling. IR with good coiling outcome. post-coiling CT head demonstrates re- bleed with significant mass effect on the 3rd and 4th ventricles. taken emergently to OR for right decompressive hemicraniectomy. Objective Vital Signs Date Time Temp Pulse Resp B/P Pulse Ox O2 Delivery O2 Flow Rate FiO2 09/05/16 10:15 100 100 09/05/16 10:00 45 09/05/16 08:00 98.5 14 144/65 09/05/16 07:00 Mechanical Ventilator Result Diagram: 09/05/16 0535 09/05/16 0535 Other Results Laboratory Tests Test 09/05/16 01:22 Blood Gas Puncture Site MALENA Blood Gas Patient Temperature 98.6 Blood Gas HCO3 22 mmol/L (22-26) Blood Gas Base Excess -1.8 mmol/L (-2-2) Blood Gas Oxygen Saturation 98 % (90-100) Arterial Blood pH 7.40 (7.380-7.420) Arterial Blood Partial 37 mmHg (38-42) Pressure CO2 Arterial Blood Partial 194 mmHg Pressure O2 (61-120) Arterial Blood Oxygen Content 16.6 Vol % (12.0-20.0) Arterial Blood 0.8 % (0-4) Carboxyhemoglobin Arterial Blood Methemoglobin 1.0 % (0-2) Blood Gas Hemoglobin 11.8 G/DL (12.0-16.0) Oxygen Delivery Device VENTILATOR Blood Gas Ventilator Setting AC14/450/+5 Blood Gas Inspired Oxygen 40 % Imaging Last [address] 09/05/16 0000 Signed Impressions: Service Date/Time: Monday, September 05, 2016 13:54 - CONCLUSION: 1. The patient is post coiling of a right P-comm aneurysm. 2. There is extensive subdural, subarachnoid and intraventricular hemorrhage. The overall amount of intraventricular hemorrhage has increased when compared to the previous exam. The amount of right to left falcine shift has increased when compared to previous as well. 3. The perimesencephalic cisterns appear similar to previous dated 09/05/16. Arnie Knutson MD Embolization, Transcatheter 09/05/16 0000 Signed Impressions: Service Date/Time: Monday, September 05, 2016 11:12 - CONCLUSION: 1. Successful coiling of the patient's posterior communicating artery aneurysm. There was complete exclusion of the aneurysm from the circulation at the conclusion of the procedure. Arnie Knutson MD Objective Remarks GENERAL: young female, critically ill, comatose. SKIN: Warm and dry. HEAD: Normocephalic. EYES: No scleral icterus. No injection or drainage. left pupil 3mm, right pupil 6mm and nonreactive. NECK: Supple, trachea midline. No JVD or lymphadenopathy. CARDIOVASCULAR: Regular rate and rhythm without murmurs, gallops, or rubs. RESPIRATORY: Breath sounds equal bilaterally. No accessory muscle use. GASTROINTESTINAL: Abdomen soft, non-tender, nondistended. MUSCULOSKELETAL: No cyanosis, or edema. EXTREMITIES: distal pulses 2+, no peripheral edema neuro: RASS -5. GCS 3. pupillary exam as above. A/P Problem List: (1) Subarachnoid hemorrhage ICD Code: I60.9 Status: Acute Assessment and Plan Assessment: This is a 50yF with Aneurysmal SAH and PCOM Aneurysm, Post-Bleed Day 1 and POD 0 s/p endovascular coiling, course complicated by re-bleed, severely elevated ICP, transtentorial herniation, now s/p right decompressive hemicraniectomy. Certainly, she is very critically ill, and she may not survive this, but she is young, so our goals are aggressive at this point. Plan by systems: Neurologic: Aneurysmal subarachnoid bleed PCOM aneurysm Status post endovascular coiling Rebleed Transtentorial herniation Malignant intracranial hypertension Status post emergent mannitol 23.5% sodium chloride Hyperosmolar therapy targeting serum sodium 150-155, osm> 300. --q1h neuro checks --Nsgy: Dr. Oswald following --HOB at 30 degrees --no sedation vacation Nimodipine Respiratory: Acute hypoxic and hypercarbic respiratory failure Vent bundle Head of bed 30 Does not meet SBT criteria given intracranial pathology Wean FiO2 for goal SPO2 greater than 92% Avoid hypercarbia Nebs every 6 and every 2 when necessary Cardiovascular: Hypertensive emergency Nicardipine for goal blood pressure less than 150 Nimodipine for subarachnoid hemorrhage Maintenance fluids, normal saline at 150 cc an hour Avoid hypovolemia Renal: Acute kidney injury Valerio for accurate I's and O's -- Strict I/Os FEN/GI: Hyperosmolar therapy ICU electrolyte protocol Sodiums every 6 Nothing by mouth Daily BMP Heme/ID: Anemia acute blood loss Daily CBC Does not meet transfusion triggers at this time No infectious etiology suspected this time Endocrine: Hyperglycemia of critical illness -- SSI, every 6 hours, medium scale Prophylaxis: GI Prophylaxis Protonix 40 mg IV every 24 hours DVT Prophylaxis -- SCDs Holding from oncologic DVT prophylaxis in the setting of intracranial bleeding Lines: 09/04 triple lumen catheter 09/04 radial arterial line Valerio Dispo: Remain in the ICU. She remains very critically ill. This patient remains critically ill with one or more organ systems which are or may become a threat to life. I have spent in excess of 108 minutes discontinuously in the care and management of this patient. This time is exclusive of procedures, and includes, but is not limited to, evaluation of the patient, review of the medical record, discussions with family, consultants, nursing staff, or respiratory therapy, and documentation in the medical record. Iain Herring MD Sep 05, 2016 13:32
[2016-09-05] MEDS ORDERED: IODIXANOL 320 MG/ML 50 ML VIAL (for RAD SPEC) I-ARTERIAL ONE (13:39)
[2016-09-05] MEDS ORDERED: MANNITOL INJ 50 ML ONE (14:21)
[2016-09-05] MEDS ORDERED: VANCOMYCIN HCL 1000 MG VIAL ONE (14:26)
[2016-09-05] MEDS ORDERED: LIDOCAINE 1%/EPINEPHrine 1:100,000 SOLN 30 ML VIAL ONE (14:27)
[2016-09-05] MEDS ORDERED: GENTAMICIN SULFATE 80 MG/2 ML VIAL ONE (14:27)
[2016-09-05] MEDS ORDERED: GELFOAM SIZE 100 ONE (14:27)
[2016-09-05] MEDS ORDERED: levETIRAcetam 500 MG/5 ML VIAL IV ONE (14:27)
[2016-09-05] MEDS ORDERED: THROMBIN (TOPICAL) 5,000 UNIT VIAL ONE (14:27)
--- NOTE | 2016-09-05 14:54 | PD.OP ---
Operative Report Date of Surgery: Sep 05, 2016 Preoperative Diagnosis: SAH, IVH grade 4 Postoperative Diagnosis: SAH, IVH grade 4 Procedure: Right frontal [place] hole with placement of a ventriculostomy catheter Anesthesia: local Surgeon: Jorgito Oswald Vendor Specialist(s): JAME Operation and Findings: INDICATIONS FOR THE PROCEDURE The patient is a 50 year old female who was brought to [facility] as a trauma alert after a fall with a subarachnoid and intraventricular hemorrhage. Placement of ventriculostomy catheter was indicated. I have discussed with her the details including the [id number] details of the surgical procedure , its indications, alternatives, risks, and potential complications. He understood. All his questions were answered DETAILS OF THE SURGICAL PROCEDURE The frontal area was shaved, prepped and draped in the usual sterile fashion. An entry point was selected 90 millimeters posterior to the supraorbital rim and 25 millimeters from the midline. The area was infiltrated with 1% lidocaine with epinephrine. A skin incision was made with a #15 blade down to the level of the periosteum. Using a twist drill, a dennis hole was made. The dura was carefully opened with a brain needle and a ventriculostomy catheter was advanced into the ventricular system. At a depth of 65 millimeters, cerebrospinal fluid was obtained. Opening pressure was 20 centimeters of water. A specimen of cerebrospinal fluid was collected and sent to the lab for analysis of the glucose, protein, cell count and cultures. The catheter was then tunneled under the galea and externalized through a separate stab incision. The incision was closed with 3-0 nylon in a single plane. The patient tolerated the procedure well. COMPLICATIONS There were no intraoperative complications. BLOOD LOSS Blood loss was minimal. Jorgito Oswald MD Sep 05, 2016 14:54
[2016-09-05] MEDS ORDERED: SODIUM CHLORIDE IV ONE (15:00)
[2016-09-05] MEDS: levETIRAcetam INJ 500 MG in SODIUM CHLORIDE 0.9% INJ 100 ML IV SCH ×2 (15:30→20:02)
[2016-09-05] MEDS ORDERED: ACETAMINOPHEN/HYDROcodone 325 MG/10 MG TAB PO PRN ×2 (15:30)
[2016-09-05] MEDS ORDERED: BISACODYL 10 MG SUPP PR PRN (15:30)
[2016-09-05] MEDS ORDERED: SODIUM CHLORIDE 0.9% FLUSH 5 ML FLUSH IVF PRN (15:30)
[2016-09-05] MEDS ORDERED: ONDANSETRON HCL 4 MG/2 ML VIAL IV PRN (15:30)
[2016-09-05] MEDS ORDERED: MAGNESIUM SULFATE INJ 4 GM in SODIUM CHLORIDE 0.9% INJ 100 ML IV PRN (15:30)
[2016-09-05] MEDS ORDERED: MORPHINE SULFATE 4 MG/ML INJ IV PUSH PRN ×2 (15:30)
[2016-09-05] MEDS ORDERED: CALCIUM GLUCONATE 10% 1 GM/10 ML VIAL IV PRN (15:30)
--- NOTE | 2016-09-05 15:31 | RADRPT ---
EXAM DATE/TIME: 09/05/2016 13:54 [facility] COMPARISON: CTA BRAIN W 3D RECON, September 05, 2016, 1:58. INDICATIONS : Post coiling RADIATION DOSE: 34.78 CTDIvol (mGy) MEDICAL HISTORY : Non-responsive. SURGICAL HISTORY : Non-responsive. ENCOUNTER: Subsequent ACUITY: 1 day PAIN SCALE: Non-responsive LOCATION: cranial TECHNIQUE: Multiple contiguous axial images were obtained of the head. Using automated exposure control and adj ustment of the mA and/or kV according to patient size, radiation dose was kept as low as reasonably a chievable to obtain optimal diagnostic quality images. FINDINGS: The examination demonstrates extensive intraventricular and extra-axial hemorrhage secondary to ruptu red posterior communicating artery aneurysm. The examination demonstrates streak artifact in the sussy on of the P-comm on the right consistent with endovascular coiling of the aneurysm. There is a ventri culostomy in place. There is extensive falcine shift with it least 1.6 cm of right to left shift. The re is a sizable hematoma evident along the medial aspect of the right temporal cortex. The overall am ount of subarachnoid hemorrhage appears similar. The amount of intraventricular hemorrhage has increa sed. The right to left falcine shift has increased as well. It measured approximately 8 mm on previou s CTA examination. The sinuses demonstrate mild mucoperiosteal thickening. The orbits are intact. CONCLUSION: 1. The patient is post coiling of a right P-comm aneurysm. 2. There is extensive subdural, subarachnoid and intraventricular hemorrhage. The overall amount of i ntraventricular hemorrhage has increased when compared to the previous exam. The amount of right to l eft falcine shift has increased when compared to previous as well. 3. The perimesencephalic cisterns appear similar to previous dated 09/05/16. Arnie Knutson MD on September 05, 2016 at 15:24 Board Certified Radiologist. This report was verified electronically.
[2016-09-05 15:34] LABS: BLOOD GAS BASE EXCESS -6.9 mmol/L (-2-2); BLOOD GAS CARBOXYHEMOGLOBIN 0.9 % (0-4); BLOOD GAS HCO3 18 mmol/L (22-26); BLOOD GAS METHEMOGLOBIN 1.1 % (0-2); BLOOD GAS O2 HGB SATURATION 98 % (90-100); BLOOD GAS OXYGEN CONTENT 19.4 Vol % (12.0-20.0); BLOOD GAS PCO2 37 mmHg (38-42); BLOOD GAS PO2 429 mmHg (61-120); BLOOD GAS TOTAL HGB 13.3 G/DL (12.0-16.0); CRITICAL VALUE NO; OXYGEN DEVICE OR; TEMP CORR TO 98.6; VENT SETTINGS OR
[2016-09-05 15:35] LABS: FIO2 96 %; STAT YES
--- NOTE | 2016-09-05 16:02 | PD.OP ---
Operative Report Date of Surgery: Sep 05, 2016 Preoperative Diagnosis: SAH, IVH Navarrete Cardoza grade 5 Postoperative Diagnosis: SAH, IVH NAVARRETE Cardoza grade 5 Procedure: Left frontal [place] hole with placement of a ventriculostomy catheter. Removal of non-functioning right ventriculostomy Anesthesia: general Surgeon: Jorgito Oswald Robotic Welding Operator(s): JAME Operation and Findings: INDICATIONS FOR THE PROCEDURE Ms Gutierrez Call 50 year old female who was brought to [facility] with subarachnoid and intraventricular hemorrhage. She initially had a right sided ventriculostomy which was initially working well. She rehemorrhaged and her ventriculostomy clothed. Repeated attempts to flush were unsuccessful. Placement of a left ventriculostomy catheter was indicated. DETAILS OF THE SURGICAL PROCEDURE The left frontal area was shaved, prepped and draped in the usual sterile fashion. An entry point was selected 90 millimeters posterior to the supraorbital rim and 25 millimeters from the midline. The area was infiltrated with 1% lidocaine with epinephrine. A skin incision was made with a #15 blade down to the level of the periosteum. Using a twist drill, a dennis hole was made. The dura was carefully opened with a brain needle and a ventriculostomy catheter was advanced into the ventricular system. At a depth of 65 millimeters, cerebrospinal fluid was obtained. Opening pressure was greater than 25 centimeters of water. A specimen of cerebrospinal fluid was collected and sent to the lab for analysis of the glucose, protein, cell count and cultures. The catheter was then tunneled under the galea and externalized through a separate stab incision. The incision was closed with 3-0 nylon in a single plane. The patient tolerated the procedure well. The right ventriculostomy was then removed and a 3-0 Ethylon suture was placed COMPLICATIONS There were no intraoperative complications. BLOOD LOSS Blood loss was minimal. Jorgito Oswald MD Sep 05, 2016 16:02
[2016-09-05] MEDS ORDERED: PROPOFOL 500 MG/50 ML INJ 50 ML ONE (16:13)
[2016-09-05 16:16] LABS: APTT (PATIENT) 25.4 SEC (24.3-30.1); INTERNATIONAL NORMALIZED RATIO 1.1 RATIO
--- NOTE | 2016-09-05 16:35 | RADRPT ---
EXAM DATE/TIME: 09/05/2016 11:12 [facility] COMPARISON: F/U THRU EXISTING CATHETER, September 05, 2016, 0:00. 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 MEDICAL HISTORY : <<None>> SURGICAL HISTORY : <<None>> ENCOUNTER: Initial ACUITY: 1 day PAIN SCORE: Nonresponsive. FLUORO TIME: <<36.2>> minutes ACCESS SITE: Right Femoral artery CONTRAST: <<60>> cc Visipaque (iodixanol) DEVICE(S): 1.) Right Posterior communicating artery <<Micrusphere [id number]>> <<Stretch Resistant coil>> 2.) Right Posterior communicating artery <<Orbit Galaxy Complex Fill [id number]>> <<Detachable coil>> 3.) Right posterior communicating artery <<Orbit Galaxy Complex Xtrasoft [id number]>> <<Detachable coi l>> 4.) Right common femoral artery <<6F>> Angio-Seal Anesthesia and pain control was provided by the Anesthesia department. PROCEDURE : 1. Ultrasound-guided puncture of the access site. 2. Angiography of the access site prior to closure device. 3. Conscious sedation with continuous EKG and Oximetry monitoring. 4. Percutaneous closure of the access site. 5. Angiography of the intracranial circulation on the right. 6. coil embolization of a right posterior communicating artery aneurysm. 7. followup angiography x4. The risks, benefits and alternatives to the procedure were explained to the patient's family. Verbal and written consent was obtained. The site was prepped in sterile fashion. Full sterile technique w as used, including cap, mask, sterile gloves and gown and a large sterile sheet. Hand hygiene and 2% chlorhexidine and/or betadine/alcohol prep was utilized per protocol for cutaneous antisepsis. The skin and subcutaneous tissues were infiltrated with local anesthetic solution. With ultrasound and fluoroscopic guidance the selected artery was punctured and a vascular sheath was placed. Angiography of the common femoral artery was performed for evaluation prior to percutaneous closure device placement. A RADHIKA 2 catheter and angled Glidewire were advanced into the right common carotid. The glide wire and RADHIKA 2 catheter were advanced into the external carotid circulation. The catheter and glide wire were e xchanged for macroport wire. A RABBE sheath was advanced from the right groin and into the common car otid. A 5 Syrian neuron catheter was advanced through the wrap a sheath. This was parked in the proxi mal right internal carotid. Selective carotid angiography was performed. This demonstrated a 7-8 mm aneurysm arising from the rig ht posterior communicating artery. A Prowler select catheter and Marksman wire were danced into the patient's P-comm aneurysm without di fficulty. The aneurysm was coiled with a total of 3 coils. These included a 7 mm x 14 cm, 5 mm x 10 cm and a 4 mm x 8 mm coil. At the conclusion of the procedure there was complete exclusion of the aneurysm from circulation. The patient's posterior communicating artery was widely patent. Hemostasis was obtained with a 6 Syrian Angio-Seal medicated closure device. Conscious sedation was performed with the prescribed dosages and duration as above. EKG and oximetry remained stable throug hout the procedure. The patient was sent to post anesthesia recovery in stable condition. CONCLUSION: 1. Successful coiling of the patient's posterior communicating artery aneurysm. There was complete ex clusion of the aneurysm from the circulation at the conclusion of the procedure. Arnie Knutson MD on September 05, 2016 at 16:26 Board Certified Radiologist. This report was verified electronically.
--- NOTE | 2016-09-05 16:44 | PD.OP ---
Operative Report Date of Surgery: Sep 05, 2016 Preoperative Diagnosis: SAH, IVH Arce Cardoza grade 5. Severe brain edema with acute subdural hematoma Postoperative Diagnosis: SAH, IVH Arce Cardoza grade 5. Severe brain edema with acute subdural hematoma Procedure: Right frontotemporoparietal decompressive craniectomy and duraplasty Anesthesia: general Surgeon: Jorgito Oswald Manager Icu(s): Rojelio Operation and Findings: INDICATIONS FOR THE PROCEDURE Ms Gutierrez Call 50 year old female who was brought to [facility] with subarachnoid and intraventricular hemorrhage. She initially had a right sided ventriculostomy which was initially working well. She suffered a new hemorrhage and and follow up CT showed severe brain edema, with a subdural hematoma and severe midline shift. A surgical decompression was indicatedl, as recommended by the Trauma [employer] of [employer] [employer] in an attempt to save the patient's life. I have discussed the details including the [id number] details of the surgical procedure, its indications, alternatives, risks, and potential complications with her . He understood. ALl his questions were answered. No guaranties were given. He voiced requesting the surgery and signed informed consents. He was offered the alternative of no aggressive treatment DETAILS OF THE SURGICAL PROCEDURE The patient was endotracheally intubated and mechanically ventilated. A Valerio catheter, bilateral CARLY hose and sequential compression devices were placed and kept throughout the procedure. The patient was positioned supine on a 3080 table over a soft mattress. The eyes were tapped shut after ointment was applied by the anesthesiologist to prevent corneal abrasion. A Ioana hugger was placed over the exposed lower body to maintain control of the core body temperature. The head was placed on a gel doughnut. All pressure points were carefully padded with egg crate mattress. right The frontotemporal parietal area was shaved, prepped and draped in the usual sterile fashion. A standard inverted question angel incision was outlined on the scalp and infiltrated with 1% lidocaine with epinephrine. The skin incision was made with a #10 blade down to the level of the periosteum in the frontoparietal region and to the temporalis fascia in the temporal region. Janay clips were applied to the scalp. Using a Bovie, the temporalis fascia and muscle were incised and a subperiosteal dissection was performed reflecting the scalp flap anteriorly. The scalp was covered with a moist sponge and held in position using fish hooks. The Olimpia Lars was brought to the field and a bur hole was made in the temporal region using the craniotome attachment. Then, using the footplate attachment, a large frontotemporoparietal craniotomy flap was elevated. The dura was bulging, very tense with severe pressure and an underlying dark coloration related to the acute subdural hematoma. The dura was opened with a 15 blade and Metzembaun scissors and a subdural hematoma was found,. The hematoma was evacuated by gentle irrigation and sent to the lab for histologic analysis. The bleeding was controlled using the bipolar gluer and wedger. Hemostasis was secured with the bipolar Then the incision was irrigated with saline solution. The dural edges were tacked to the bone. The brain was bulging outside the craniotomy. The dura was approximated with 4-0 Vicryl interrupted. The bone flap was saved in sterile condition in the operative room freezer. Two 7 millimeter Elier-Gonzalez drain was then left in the subdural and subgaleal space and externalized through a separate stab incision. The incision was then closed in layers. 0 Vicryl in interrupted sutures were used to close the temporalis fascia. The galea was closed with interrupted 3-0 Vicryl. [place] were applied to the skin. The drain was secured with a 3-0 nylon. At the end of the procedure, the sponge, needle and instrument counts were all correct. Estimated blood loss was less than 100 cc or less. No blood transfusion was given. No intraoperative complications occurred. The patient received prophylactic antibiotics. The patient was then transferred to the SICU room in stable condition. COMPLICATIONS None ESTIMATED BLOOD LOSS Less than 100 cc. Jorgito Oswald MD Sep 05, 2016 16:44
[2016-09-05 17:59] LABS: BLOOD GAS BASE EXCESS -9.1 mmol/L (-2-2); BLOOD GAS CARBOXYHEMOGLOBIN 0.6 % (0-4); BLOOD GAS HCO3 17 mmol/L (22-26); BLOOD GAS METHEMOGLOBIN 0.9 % (0-2); BLOOD GAS O2 HGB SATURATION 98 % (90-100); BLOOD GAS OXYGEN CONTENT 14.7 Vol % (12.0-20.0); BLOOD GAS PCO2 38 mmHg (38-42); BLOOD GAS PO2 206 mmHg (61-120); BLOOD GAS TOTAL HGB 10.4 G/DL (12.0-16.0); TEMP CORR TO 98.6
[2016-09-05 18:00] LABS: CRITICAL VALUE YES; OXYGEN DEVICE VENTILATOR
[2016-09-05] MEDS: ceFAZolin 2 GM PREMIX 50 ML IV SCH (18:00)
[2016-09-05] MEDS ORDERED: SODIUM BICARBONATE 8.4% INJ 50 ML ONE (18:01)
[2016-09-05 18:02] LABS: DRAW SITE ART LINE; FIO2 40 %; STAT YES; VENT SETTINGS 500/14/+5
[2016-09-05] MEDS ORDERED: SODIUM CHLOR 0.9% 1000 ML INJ 1,000 ML IV ONE ×2 (18:45)
[2016-09-05] MEDS ORDERED: SODIUM BICARBONATE 8.4% INJ 50 MEQ/50 ML SYR IV PUSH ONE (18:45)
[2016-09-05] MEDS ORDERED: VASOPRESSIN INJ 40 UNITS in DEXTROSE 5% IN WATER 100ML INJ 98 ML IV SCH ×2 (19:00)
[2016-09-05 19:47] LABS: MEAN CELL VOLUME 91.1 FL (80.0-100.0); MEAN CORPUSCULAR HEMOGLOBIN 31.3 PG (27.0-34.0); MEAN CORPUSCULAR HGB CONC 34.3 % (32.0-36.0); PLATELET COUNT 206 TH/MM3 (150-450); RED BLOOD COUNT 3.19 MIL/MM3 (4.00-5.30); RED CELL DISTRIBUTION WIDTH 12.9 % (11.6-17.2); REVIEW FLAG FINAL; WHITE BLOOD COUNT 25.3 TH/MM3 (4.0-11.0)
[2016-09-05] MEDS: NS + KCL 20 MEQ INJ 1,000 ML IV SCH (20:01)
[2016-09-05] MEDS: VASOPRESSIN INJ 40 UNITS in SODIUM CHLORIDE 0.9% INJ 98 ML IV SCH (20:04)
[2016-09-05] MEDS: ALBUMIN HUMAN 5% 25 GM/500 ML BOTTLE IV SCH (20:04)
[2016-09-05 20:05] LABS: BICARBONATE 21.6 MEQ/L (21.0-32.0); POTASSIUM 3.1 MEQ/L (3.5-5.1)
[2016-09-05 20:28] LABS: CALCIUM-PROTEIN CORRECTED 6.8 MG/DL (8.5-10.1)
[2016-09-05] MEDS: DOCUSATE SODIUM 100 MG CAP PO SCH (20:29)
[2016-09-05] MEDS: SODIUM CHLORIDE 0.9% FLUSH 5 ML FLUSH IVF SCH (20:48)
[2016-09-05 21:04] LABS: GROSS BLOOD TUBE #1 4+ (0); SUPERNATE COLOR TUBE #1 SLIGHTLY XANTHOCHROM (CLEAR); VOLUME TUBE # 1 0.7 ML; WBC TUBE #1 425 /MM3 (0-10)
[2016-09-05 21:05] LABS: CSF LYMPHOCYTES 27 %; CSF NEUTROPHILS 66 %
[2016-09-05 21:06] LABS: CSF MONOCYTES 7 %
[2016-09-05] MEDS: CALCIUM GLUCONATE INJ 1 GM in SODIUM CHLORIDE 0.9% INJ 100 ML IV PRN ×2 (21:10→22:03)
[2016-09-05] MEDS: POTASSIUM CHLOR 40 MEQ PREMIX 100 ML IV PRN ×2 (21:10→22:03)
[2016-09-05] MEDS ORDERED: SODIUM CHLORID 0.9% IV SCH (22:00)
[2016-09-05] MEDS ORDERED: NOREPINEPHRINE IV SCH (22:00)
[2016-09-06] VITALS (17 sets, daily range): BP systolic 134–163; BP diastolic 57–69; PULSE 55–67; RESP 17; TEMP 98.2–98.8; O2SAT 100
--- NOTE | 2016-09-06 | EC ---
Study Study Date:09/05/2016 STUDY CONCLUSIONS SUMMARY - Left ventricle: The cavity size was normal. Wall thickness was normal. Systolic function was normal. The estimated ejection fraction was 55%. Wall motion was normal; there were no regional wall motion abnormalities. - Mitral valve: Mild regurgitation. - Pulmonic valve: Peak gradient: 12mm Hg (S). - Pericardium, extracardiac: There wastrace pericardial effusion. If LV function is below 40, please consider prescribing an ACEI or ARB or document rationale for non-use. PROCEDURE DATA STUDY STATUS: Elective. Procedure: Transthoracic echocardiography. Image quality was good. Scanning was performed from the parasternal, apical, and subcostal acoustic windows. Study completion: The patient tolerated the procedure well. Transthoracic echocardiography. M-mode, complete 2D, complete spectral Doppler, and color Doppler. Height: Height: 60in. Weight: Weight: 149.7lb. Body mass index: BMI: 29.3kg/m^2. Body surface area: BSA: 1.65m^2. Patient status: Inpatient. CARDIAC ANATOMY LEFT VENTRICLE: The cavity size was normal. Wall thickness was normal. Systolic function was normal. The estimated ejection fraction was 55%. Wall motion was normal; there were no regional wall motion abnormalities. AORTIC VALVE: Trileaflet; normal thickness leaflets. Doppler: Transvalvular velocity was within the normal range. There was no stenosis. No regurgitation. Valve area: 2.3cm^2 (Vmax). Indexed valve area: 1.39cm^2/m^2 (Vmax). Peak gradient: 20mm Hg (S). AORTA: Aortic root: The aortic root was normal in size. MITRAL VALVE: Structurally normal valve. Doppler: Transvalvular velocity was within the normal range. There was no evidence for stenosis. Mild regurgitation. Peak gradient: 5mm Hg (D). LEFT ATRIUM: The atrium was normal in size. RIGHT VENTRICLE: The cavity size was normal. Wall thickness was normal. PULMONIC VALVE: Doppler: Transvalvular velocity was within the normal range. There was no evidence for stenosis. No regurgitation. Peak gradient: 12mm Hg (S). TRICUSPID VALVE: Structurally normal valve. Doppler: Transvalvular velocity was within the normal range. Trace regurgitation. PULMONARY ARTERY: The main pulmonary artery was normal-sized. Systolic pressure was within the normal range. RIGHT ATRIUM: The atrium was normal in size. PERICARDIUM: There wastrace pericardial effusion. SYSTEMIC VEINS: Inferior vena cava: The vessel was normal in size. Patient weight: 149.7lb _Ejection fraction:_ 65-75% _Fractional shortening:_ 32% up to 5Kg 5-11.5Kg 11.6-22.9Kg 23-45Kg 45-57Kg Aortic Root 7-13 <17 13-22 17-27 17-27 LA diam 6-13 <23 24-38 33-47 37-40 RVID 10-17 7-15 7-15 7-18 8-17 LVIDd 12-22 <32 24-38 33-47 37-40 LVPW 2-4 3-6 5-7 6-8 7-8 IVS 2-4 3-6 5-7 6-8 7-8 BASIC MEASUREMENTS ADULT NORMAL Left ventricle LV internal dimension, ED, chordal 43.9 mm 43-52 level, PLAX LV internal dimension, ES, chordal 31.2 mm 23-38 level, PLAX Fractional shortening, chordal level, *29 % >29 PLAX LV posterior wall thickness, ED 8.7 mm IVS/LVPW ratio, ED 0.95 <1.3 Ventricular septum Septal thickness, ED 8.27 mm Aortic valve Leaflet separation 20 mm 15-26 BASIC MEASUREMENTS ADULT NORMAL Aortic valve Leaflet separation 20 mm 15-26 Aorta Root diameter, ED 22 mm 20-37 Left atrium Anterior-posterior dimension, ES 26 mm 19-40 Anterior-posterior dimension index, ES 1.58 cm/m^2 <2.2 LA/aortic root ratio 1.18 DOPPLER MEASUREMENTS ADULT NORMAL Main pulmonary artery Pressure, S 11 mm Hg =30 Aortic valve Peak velocity, S 225 cm/s Peak gradient, S 20 mm Hg Valve area, Vmax 2.3 cm^2 Valve area index, Vmax 1.39 cm^2/m^2 Mitral valve Peak E-wave velocity 110 cm/s Peak A-wave velocity 74 cm/s Deceleration time 155 ms 150-230 Peak gradient, D 5 mm Hg Peak E/A ratio 1.5 Maximal regurgitant velocity 369 cm/s Tricuspid valve Regurgitant peak velocity 181 cm/s Peak RV-RA gradient, S 13 mm Hg Maximal regurgitant velocity 181 cm/s Systemic veins Estimated CVP 10 mm Hg Right ventricle RV pressure, S 23 mm Hg <30 Pulmonic valve Peak velocity, S 170 cm/s Peak gradient, S 12 mm Hg LEGEND: Mean values are shown as u=mean value. Asterisk (*) cano values outside specified normal range. Prepared and signed by Kelsi Good [id number]
[2016-09-06] MEDS: PHENYLEPHRINE INJ 40 MG in SODIUM CHLORID 0.9% 500 ML INJ 496 ML IV SCH (01:12)
[2016-09-06] MEDS: PROPOFOL 1000 MG/100 ML INJ 100 ML IV SCH ×5 (01:24→23:13)
[2016-09-06] MEDS: ceFAZolin 2 GM PREMIX 50 ML IV SCH ×2 (01:26→10:14)
[2016-09-06] MEDS: ALBUMIN HUMAN 5% 25 GM/500 ML BOTTLE IV SCH ×4 (01:26→20:03)
[2016-09-06] MEDS: NS + KCL 20 MEQ INJ 1,000 ML IV SCH ×5 (01:27→22:00)
[2016-09-06] MEDS: CHLORHEXIDINE GLUCONATE 2 % 1 PACK (2 CLOTHS) TOP SCH (04:00)
--- NOTE | 2016-09-06 04:14 | RADRPT ---
EXAM DATE/TIME: 09/06/2016 03:37 [facility] COMPARISON: No previous studies available for comparison. INDICATIONS : Shortness of breath. MEDICAL HISTORY : Unobtainable. SURGICAL HISTORY : Unobtainable. ENCOUNTER: Initial ACUITY: 2 days PAIN SCORE: Non-responsive. LOCATION: Bilateral chest FINDINGS: Endotracheal tube tip in satisfactory position. NG tip in the distal esophagus. Minimal basilar depen dent atelectasis. Trace pleural fluid. Mild scoliosis. CONCLUSION: Nasogastric tube tip in distal esophagus. Endotracheal tube tip in satisfactory position. Minimal dep endent opacity in the lungs. Kun Montiel MD on September 06, 2016 at 4:10 Board Certified Radiologist. This report was verified electronically.
[2016-09-06] MEDS: NOREPINEPHRINE IV SCH ×3 (04:25→10:53)
[2016-09-06] MEDS: SODIUM CHLORID 0.9% IV SCH ×3 (04:25→10:53)
[2016-09-06] MEDS: niMODipine 30 MG CAP PO SCH ×6 (04:25→23:13)
[2016-09-06] MEDS: levETIRAcetam INJ 500 MG in SODIUM CHLORIDE 0.9% INJ 100 ML IV SCH ×2 (04:26→15:46)
[2016-09-06 05:44] LABS: AUTOMATED NEUTROPHIL # 20.9 TH/MM3 (1.8-7.7); BASOPHIL # 0.2 TH/MM3 (0-0.2); BASOPHIL % 0.9 % (0.0-2.0); EOSINOPHIL # 0.1 TH/MM3 (0-0.4); EOSINOPHIL % 0.3 % (0.0-4.0); HEMATOCRIT 25.7 % (35.0-46.0); HEMO FLAGS DIFF FINAL; LYMPH % 4.8 % (9.0-44.0); LYMPHOCYTE # 1.2 TH/MM3 (1.0-4.8); MEAN CELL VOLUME 91.4 FL (80.0-100.0); MEAN CORPUSCULAR HEMOGLOBIN 30.7 PG (27.0-34.0); MEAN CORPUSCULAR HGB CONC 33.6 % (32.0-36.0); MONO % 7.9 % (0.0-8.0); NEUT % 86.1 % (16.0-70.0); PLATELET COUNT 164 TH/MM3 (150-450); RED BLOOD COUNT 2.81 MIL/MM3 (4.00-5.30); RED CELL DISTRIBUTION WIDTH 12.5 % (11.6-17.2); WHITE BLOOD COUNT 24.3 TH/MM3 (4.0-11.0)
[2016-09-06] MEDS: INSULIN NovoLIN REGULAR SUPPLEMENTAL SCALE SQ SCH ×4 (06:00→23:40)
[2016-09-06 06:08] LABS: BICARBONATE 22.2 MEQ/L (21.0-32.0); POTASSIUM 3.2 MEQ/L (3.5-5.1)
[2016-09-06 06:19] LABS: CALCIUM-PROTEIN CORRECTED 7.9 MG/DL (8.5-10.1)
[2016-09-06] MEDS: POTASSIUM CHLOR 40 MEQ PREMIX 100 ML IV PRN ×2 (06:24→08:35)
[2016-09-06] MEDS: PANTOPRAZOLE SOD 40 MG DELAYED RELEASE TAB PO SCH (07:43)
[2016-09-06] MEDS: DOCUSATE SODIUM 100 MG/10 ML UDC G-TUBE SCH ×2 (07:44→23:13)
[2016-09-06] MEDS: 3% SALINE INJ 500 ML IV SCH (08:01)
[2016-09-06] MEDS: FAMOTIDINE 20 MG/2 ML VIAL IV PUSH SCH ×2 (08:02→20:04)
[2016-09-06] MEDS: ARTIFICIAL TEARS OPTH SOLN 15 ML BTL EACH EYE SCH ×3 (08:02→18:36)
[2016-09-06] MEDS: PANTOPRAZOLE SODIUM 40 MG VIAL IVP SCH (08:02)
[2016-09-06] MEDS: PRAVASTATIN SOD 40 MG TAB PO SCH (08:02)
[2016-09-06] MEDS: DOCUSATE SODIUM 100 MG CAP PO SCH ×2 (08:02→20:04)
[2016-09-06] MEDS: SODIUM CHLORIDE 0.9% FLUSH 5 ML FLUSH IVF SCH ×2 (08:02→20:04)
[2016-09-06] MEDS: CALCIUM GLUCONATE INJ 1 GM in SODIUM CHLORIDE 0.9% INJ 100 ML IV PRN (08:34)
--- NOTE | 2016-09-06 10:40 | HHI.NSPN ---
(Sarah Thompson) Note Status Status: Progress Note (Sarah Thompson) Interval History Interval History This is a 67 years old female was transferred to [facility] from [facility] for a subarachnoid hemorrhage. She suddenly developed severe headache and then vomited. No seizure activity. No tongue bitting. No tonic clonic movements. no incontinence of stool or urine. CT scan of the brain done at [facility] in [place] shows extensive subarachnoid and intraventricular hemorrhage with early obstructive hydrocephalus. 09/05: s/p placement of ventriculostomy drain, CTA shows right PCOM aneurysm, ICPs <20 09/06: pt underwent endovascular coiling of right PCOM aneurysm yesterday, f/u CT Brain yesterday showed increased SAH with right SDH causing significant midline shift, she underwent emergent decompressive craniectomy with evacuation of SDH, and placement of left ventriculostomy drain. She is on 3% NS, ICPs as high as 21. EVD draning well bloody CSF. (Sarah Thompson) Labs, Micro, & Vital Signs Results Date Time Temp Pulse Resp B/P Pulse Ox O2 Delivery O2 Flow Rate FiO2 09/06/16 10:00 66 09/06/16 08:53 100 40 09/06/16 08:00 61 09/06/16 08:00 98.4 65 17 156/65 100 09/06/16 08:00 40 09/06/16 07:00 Mechanical Ventilator 09/06/16 06:00 63 09/06/16 04:04 100 40 09/06/16 04:00 65 09/06/16 04:00 40 09/06/16 04:00 98.4 65 17 154/58 100 09/06/16 02:00 67 09/06/16 00:55 100 40 09/06/16 00:00 65 09/06/16 00:00 98.8 65 17 151/60 100 09/06/16 00:00 40 09/05/16 22:00 62 09/05/16 20:00 40 09/05/16 20:00 94.6 56 17 170/68 100 09/05/16 20:00 56 09/05/16 19:54 100 40 09/05/16 19:00 Mechanical Ventilator 09/05/16 18:00 93.1 60 14 137/63 100 09/05/16 18:00 63 09/05/16 13:15 100 100 09/06/16 07:00 Intake Total 44828 ml Output Total 9476 ml Balance 667 ml Constitutional Vital Signs Date Time Temp Pulse Resp B/P Pulse Ox O2 Delivery O2 Flow Rate FiO2 09/06/16 10:00 66 09/06/16 08:53 100 40 09/06/16 08:00 61 09/06/16 08:00 98.4 65 17 156/65 100 09/06/16 08:00 40 09/06/16 07:00 Mechanical Ventilator 09/06/16 06:00 63 09/06/16 04:04 100 40 09/06/16 04:00 65 09/06/16 04:00 40 09/06/16 04:00 98.4 65 17 154/58 100 09/06/16 02:00 67 09/06/16 00:55 100 40 09/06/16 00:00 65 09/06/16 00:00 98.8 65 17 151/60 100 09/06/16 00:00 40 09/05/16 22:00 62 09/05/16 20:00 40 09/05/16 20:00 94.6 56 17 170/68 100 09/05/16 20:00 56 09/05/16 19:54 100 40 09/05/16 19:00 Mechanical Ventilator 09/05/16 18:00 93.1 60 14 137/63 100 09/05/16 18:00 63 09/05/16 13:15 100 100 09/06/16 07:00 Intake Total 03254 ml Output Total 9476 ml Balance 667 ml (Sarah Thompson) Review of Systems/Exam Exam Ms. Lopez is intubated and sedated, she does not open eyes or follow commands. Mildly moved her head to pain stimuli. Left ventriculostomy drain at 0 cm H20, draining bloody CSF. Right flap full and tight. Cranial nerve examination: pupils 2 mm left, 3 mm right. Conjugate gaze. Motor: no spontaneous movements Sensorimotor: minimally withdraws to left lower extremity Bilateral plantars silent Cerebellar exam cannot be assessed due to clinical condition (Sarah Thompson ) Medications Current Medications Current Medications Medications (Trade) Dose Ordered Sig/Van Route PRN Reason Start Time Stop Time Status Last Admin Dose Admin Propofol (Diprivan 1000 Mg/100ml Inj) 100 ml @ 0 mls/hr TITRATE IV 09/04/16 23:00 09/06/16 08:01 Famotidine (Pepcid Inj) 20 mg Q12HR IV PUSH 09/05/16 09:00 09/06/16 08:02 Artificial Tears (Tears Naturale Opth Soln) 1 drop TID EACH EYE 09/05/16 09:00 09/06/16 08:02 Docusate Sodium (Colace Liq) 100 mg Q12H G-TUBE 09/04/16 00:00 09/05/16 23:48 Miscellaneous Information 1 Q361D XX 09/04/16 23:15 Chlorhexidine Gluconate (Chlorhexidine 2% Cloth) 3 pack Taper DAILY@04 TOP 09/05/16 04:00 09/01/17 03:59 09/06/16 04:00 Chlorhexidine Gluconate 3 pack 3 pack UNSCH PRN TOP HYGIENIC CARE 09/04/16 23:15 Nicardipine HCl/ Sodium Chloride (Cardene Inj/NS 250 ml Inj) 260 ml @ 0 mls/hr TITRATE IV 09/04/16 23:15 Hydralazine HCl 20 mg 20 mg Q4H PRN IV PUSH SBP>160, DBP>90 09/04/16 23:15 Sodium Chloride 500 ml @ 10 mls/hr Q16H IV 09/05/16 00:15 09/06/16 08:01 Fentanyl Citrate 250 ml @ 0 mls/hr TITRATE IV 09/05/16 00:30 09/05/16 09:05 Potassium Chloride 100 ml @ 50 mls/hr Q2H PRN IV For Potassium 2.8 - 3.2 mEq/L 09/05/16 01:45 09/06/16 08:35 Potassium Chloride (KCl 20 Meq Premix Inj) 100 ml @ 50 mls/hr Q2H PRN IV For Potassium 2.8 - 3.2 mEq/L 09/05/16 01:45 Potassium Chloride 40 meq 40 meq UNSCH PRN PO/TUBE For Potassium 3.3 - 3.5 mEq/L 09/05/16 01:45 Potassium Chloride 100 ml @ 25 mls/hr UNSCH PRN IV For Potassium 3.3 - 3.5 mEq/L 09/05/16 01:45 Potassium Chloride 100 ml @ 50 mls/hr Q2H PRN IV For Potassium 3.3 - 3.5 mEq/L 09/05/16 01:45 Magnesium Sulfate/ Sodium Chloride (Magnesium Sulfate Inj/NS Inj) 100 ml @ 50 mls/hr UNSCH PRN IV For Magnesium 0.9 - 1.1 mg/dL 09/05/16 01:45 Magnesium Oxide 800 mg 800 mg UNSCH PRN PO For Magnesium 1.2 - 1.6 mg/dL 09/05/16 01:45 Magnesium Sulfate/ Sodium Chloride (Magnesium Sulfate Inj/NS Inj) 100 ml @ 50 mls/hr UNSCH PRN IV For Magnesium 1.2 - 1.6 mg/dL 09/05/16 01:45 Potassium Phosphate 2000 mg 2,000 mg Q4H PRN PO For Phosphorus < 2.5 mg/dL 09/05/16 01:45 Sodium Phosphate/ Sodium Chloride (Sodium Phosphate Inj/NS 250 ml Inj) 250 ml @ 42 mls/hr UNSCH PRN IV For Phosphorus < 2.5 mg/dL 09/05/16 01:45 Potassium Chloride (KCl 40 Meq/30 ml Liq) 40 meq UNSCH PRN PO/TUBE SEE LABEL COMMENTS 09/05/16 01:45 Potassium Phosphate 2000 mg 2,000 mg UNSCH PRN PO/TUBE SEE LABEL COMMENTS 09/05/16 01:45 Potassium Phosphate/Sodium Chloride (Potassium Phosphate Inj/NS 250 ml Inj) 260 ml @ 42 mls/hr UNSCH PRN IV SEE LABEL COMMENTS 09/05/16 01:45 Nimodipine (Nimotop) 60 mg Q4HR PO 09/05/16 04:00 09/06/16 08:01 Pravastatin Sodium (Pravachol) 40 mg DAILY PO 09/05/16 09:00 09/06/16 08:02 Dextrose (D50w (Vial) Inj) 25 ml UNSCH PRN IV PUSH HYPOGLYCEMIA-SEE COMMENTS 09/05/16 07:30 Insulin Human Regular 1 1 Q6HR SQ 09/05/16 12:00 Potassium Chloride/Sodium Chloride (NS + KCl 20 Meq Inj) 1,000 ml @ 150 mls/hr Q6H40M IV 09/05/16 16:00 09/06/16 04:26 IV Flush (NS Flush) 2 ml UNSCH PRN IVF FLUSH AFTER USING IV ACCESS 09/05/16 15:30 IV Flush 2 ml 2 ml BID IVF 09/05/16 21:00 09/06/16 08:02 Cefazolin Sodium/ Dextrose 50 ml @ 100 mls/hr Q8H IV 09/05/16 18:00 09/06/16 10:29 09/06/16 10:14 Levetriacetam/ Sodium Chloride (Keppra Inj/NS Inj) 105 ml @ 400 mls/hr Q12H IV 09/05/16 16:00 09/06/16 04:26 Bisacodyl (Dulcolax Supp) 10 mg DAILY PRN DC CONSTIPATION 09/05/16 15:30 Docusate Sodium (Colace) 100 mg BID PO 09/05/16 21:00 09/06/16 08:02 Pantoprazole Sodium (Protonix) 40 mg DAILY PO 09/06/16 09:00 Pantoprazole Sodium (Protonix Inj) 40 mg DAILY IVP 09/06/16 09:00 09/06/16 08:02 Ondansetron HCl 4 mg 4 mg Q6H PRN IV NAUSEA OR VOMITING 09/05/16 15:30 Potassium Chloride 100 ml @ 50 mls/hr UNSCH PRN IV POTASSIUM LESS THAN 4 09/05/16 15:30 Magnesium Sulfate/ Sodium Chloride (Magnesium Sulfate Inj/NS Inj) 108 ml @ 108 mls/hr UNSCH PRN IV MAGNESIUM LESS THAN 2 09/05/16 15:30 Acetaminophen/ Hydrocodone Bitart ([place] 10-325 Mg) 1 tab Q4H PRN PO PAIN SCALE 1 TO 5 09/05/16 15:30 Acetaminophen/ Hydrocodone Bitart ([place] 10-325 Mg) 2 tab Q4H PRN PO PAIN SCALE 6 TO 10 09/05/16 15:30 Morphine Sulfate (Morphine Inj) 2 mg Q2H PRN IV PUSH PAIN SCALE 1 TO 6 09/05/16 15:30 Morphine Sulfate (Morphine Inj) 4 mg Q2H PRN IV PUSH PAIN SCALE 7 TO 10 09/05/16 15:30 Acetaminophen (Tylenol) 650 mg Q4H PRN PO TEMPERATURE > 101.5 F 09/05/16 15:30 Albumin Human 25 gm 25 gm Q6H IV 09/05/16 20:00 09/06/16 08:01 Vasopressin 40 units/Sodium Chloride 100 ml @ 6 mls/hr [id number] IV 09/05/16 19:01 09/05/16 20:04 Calcium Gluconate 1 gm/Sodium Chloride 110 ml @ 110 mls/hr UNSCH PRN IV PROTEIN CORRECTED CALCIUM <8.5 09/05/16 21:00 09/06/16 08:34 Phenylephrine HCl 40 mg/Sodium Chloride 500 ml @ 0 mls/hr TITRATE IV 09/06/16 01:30 09/06/16 01:12 Norepinephrine Bitartrate/Sodium Chloride (Levophed Inj/NS 500 ml Inj) 508 ml @ 0 mls/hr TITRATE IV 09/06/16 00:30 09/06/16 08:34 Fludrocortisone Acetate (Florinef) 0.1 mg Q12HR PO 09/06/16 10:30 UNV (Sarah Thompson) Medical Decision Making MDM Remarks 50 y/o with subarachnoid hemorrhage, right PCOM aneurysm, s/p endovascular coiling 09/05/16 f/u CT Brain 09/05 with extensive SAH, IVH, and right subdural hemorrhage with significant right to left midline shift s/p right decompressive craniectomy with evacuation of SDH, and left ventriculostomy drain placement 09/05/16, (Sarah Thompson) Plan Plan Remarks cont 3% NS, ventriculostomy draining with close ICP monitoring nonchemical DVT prophylaxis in view of ICH dw , and nursing (Sarah Thompson) Attending Statement The exam, history, and the medical decision-making described in the above note were completed with the assistance of the mid-level provider. I reviewed and agree with the findings presented. I attest that I had a [id number] encounter with the patient on the same day, and personally performed and documented my assessment and findings in the medical record. (Jorgito Oswald MD) Sarah Thompson Sep 06, 2016 10:40 Jorgito Oswald MD Sep 09, 2016 08:42
--- NOTE | 2016-09-06 10:44 | HHI.CCPN ---
Subjective Remarks/Hospital Course Hospital Course: 50 year old female who presents to the [facility] emergency department with a severe headache that began prior to arrival at [facility] emergency department. The patient's headache was reportedly severe and associated with nausea and vomiting and a decreased level of consciousness, therefore the patient was intubated. She underwent a CT scan of the brain that showed a subarachnoid hemorrhage and was accepted for transfer by Dr. Oswald, the neurosurgeon on-call. Subjective: 09/05: taken to IR for coiling of aneurysm. however, before coiling took place, ICPs suddenly elevated, followed by severe hypertension, bradycardia, and pupilary change. emergently controlled bp, continued to move forward with coiling. IR with good coiling outcome. post-coiling CT head demonstrates re- bleed with significant mass effect on the 3rd and 4th ventricles. taken emergently to OR for right decompressive hemicraniectomy. 09/06: overnight, significantly hypotensive. added vasopressin and phenylephrine. still on levo as well. ICP controlled. this morning, withdrawing on right, nothing on left. stat echo overnight hyperdynamic, otherwise normal. uop almost 600cc/hr. attempting to maintain euvolemia. Objective Vital Signs Date Time Temp Pulse Resp B/P Pulse Ox O2 Delivery O2 Flow Rate FiO2 09/06/16 10:00 66 09/06/16 08:53 100 40 09/06/16 08:00 98.4 17 156/65 09/06/16 07:00 Mechanical Ventilator Intake and Output 09/05/16 09/05/16 09/06/16 08:00 16:00 00:00 Intake Total 2742 ml 6380 ml Output Total 2830 ml 5772 ml Balance -88 ml 608 ml Result Diagram: 09/06/16 0530 09/06/16 0530 Other Results Laboratory Tests Test 09/05/16 09/05/16 15:20 17:44 Blood Gas Puncture Site DRAWN IN OR ART LINE Blood Gas Patient Temperature 98.6 98.6 Blood Gas HCO3 18 mmol/L 17 mmol/L (22-26) (22-26) Blood Gas Base Excess -6.9 mmol/L -9.1 mmol/L (-2-2) (-2-2) Blood Gas Oxygen Saturation 98 % (90-100) 98 % (90-100) Arterial Blood pH 7.32 7.26 (7.380-7.420) (7.380-7.420) Arterial Blood Partial 37 mmHg (38-42) 38 mmHg (38-42) Pressure CO2 Arterial Blood Partial 429 mmHg 206 mmHg Pressure O2 (61-120) (61-120) Arterial Blood Oxygen Content 19.4 Vol % 14.7 Vol % (12.0-20.0) (12.0-20.0) Arterial Blood 0.9 % (0-4) 0.6 % (0-4) Carboxyhemoglobin Arterial Blood Methemoglobin 1.1 % (0-2) 0.9 % (0-2) Blood Gas Hemoglobin 13.3 G/DL 10.4 G/DL (12.0-16.0) (12.0-16.0) Oxygen Delivery Device OR VENTILATOR Blood Gas Ventilator Setting OR 500/14/+5 Blood Gas Inspired Oxygen 96 % 40 % Imaging Last [address] 09/05/16 0000 Signed Impressions: Service Date/Time: Monday, September 05, 2016 13:54 - CONCLUSION: 1. The patient is post coiling of a right P-comm aneurysm. 2. There is extensive subdural, subarachnoid and intraventricular hemorrhage. The overall amount of intraventricular hemorrhage has increased when compared to the previous exam. The amount of right to left falcine shift has increased when compared to previous as well. 3. The perimesencephalic cisterns appear similar to previous dated 09/05/16. Arnie Knutson MD Embolization, Transcatheter 09/05/16 0000 Signed Impressions: Service Date/Time: Monday, September 05, 2016 11:12 - CONCLUSION: 1. Successful coiling of the patient's posterior communicating artery aneurysm. There was complete exclusion of the aneurysm from the circulation at the conclusion of the procedure. Arnie Knutson MD Objective Remarks GENERAL: young female, critically ill, comatose, intubated SKIN: Warm and dry. HEAD: wrapped in Kerlix dressing. EVD site looks good. EYES: No scleral icterus. No injection or drainage. bilateral pupils 3mm, equal , reactive. NECK: Supple, trachea midline. No JVD CARDIOVASCULAR: Regular rate and rhythm without appreciable murmurs RESPIRATORY: Breath sounds equal bilaterally. No accessory muscle use. GASTROINTESTINAL: Abdomen soft, non-tender, nondistended. MUSCULOSKELETAL: No cyanosis, or edema. EXTREMITIES: distal pulses 2+, no peripheral edema neuro: RASS -5. withdraws on right, nothing on left. A/P Problem List: (1) Subarachnoid hemorrhage ICD Code: I60.9 Status: Acute Assessment and Plan Assessment: This is a 50yF with Aneurysmal SAH and PCOM Aneurysm, Post-Bleed Day 2 and POD 1 s/p endovascular coiling, course complicated by re-bleed, severely elevated ICP, transtentorial herniation, now s/p right decompressive hemicraniectomy. Some slight neurologic improvements. we remain significantly hemodynamically unstable on multiple vasopressors. I am worried she may have suffered some pituitary ischemia during her elevated ICP. will send tsh, free t4 , and random cortisol and empirically treat her with fludricortisone. will hold off on empiric Synthroid until labs come back. appears to be in distributive shock/vasoplegia, but afebrile without obvious infectious etiology. leukocytosis could certainly be reactive. She remains critically ill at this point. I have discussed her care with Dr. Oswald who agrees with our joint plan and continued aggressive care. I have updated at bedside. Plan by systems: Neurologic: Aneurysmal subarachnoid bleed PCOM aneurysm Status post endovascular coiling Rebleed Transtentorial herniation Malignant intracranial hypertension s/p right decompressive hemicraniectomy Hyperosmolar therapy targeting serum sodium 150-155, osm> 300. --q1h neuro checks --Nsgy: Dr. Oswald following --HOB at 30 degrees --sedation vacation today as long as ICP < 20. Nimodipine Respiratory: Acute hypoxic and hypercarbic respiratory failure Vent bundle Head of bed 30 Does not meet SBT criteria given intracranial pathology Wean FiO2 for goal SPO2 greater than 92% Avoid hypercarbia Nebs every 6 and every 2 when necessary -- etco2 monitoring, maintain 30-35. Cardiovascular: Hypertensive emergency- resolved. Severe Vasoplegia/Distributive Shock Nimodipine for subarachnoid hemorrhage --phenylephrine, norepinephrine, vasopressin to maintain cerebral perfusion pressure. Maintenance fluids, normal saline at 150 cc an hour Avoid hypovolemia --2d echo 09/05: normal biventricular function, no valvular lesions, EF > 55%. -- empiric fludrocortisone 0.1 BID for presumed adrenal insufficiency Renal: Valerio for accurate I's and O's -- Strict I/Os -- maintain euvolemia. FEN/GI: Acute Protein calorie malnutrition- mild Hyperosmolar therapy Hypokalemia Hypocalcemia ICU electrolyte protocol Sodiums every 6 Nothing by mouth while on vasopressors. Daily BMP Heme/ID: Anemia acute blood loss Leukocytosis Daily CBC Does not meet transfusion triggers at this time No infectious etiology suspected this time, leukocytosis is likely reactive. if she spikes fever, will avery culture and start empiric antibiotics. Endocrine: Hyperglycemia of critical illness Presumed Adrenal Insufficiency Possible hypopituitarism Possible Diabetes Insipidus -- SSI, every 6 hours, medium scale -- empiric fludrocortisone 0.1mg po q12h -- send random cortisol, tsh, free t4 -- hold off on empiric Synthroid -- vasopressin 0.04 units/min for empiric therapy for DI. Prophylaxis: GI Prophylaxis Protonix 40 mg IV every 24 hours DVT Prophylaxis -- SCDs Holding pharmacologic DVT prophylaxis in the setting of intracranial bleeding Lines: 09/04 femoral triple lumen catheter. will change this to IJ or SC TLC for CVP monitoring to aid in hemodynamic monitoring as well as decrease infectious risk of groin line. 09/04 right brachial arterial line- we will leave for today, though will plan on changing this for radial art line in the next few days. Valerio --EVD Dispo: Remain in the ICU. She remains very critically ill. This patient remains critically ill with one or more organ systems which are or may become a threat to life. I have spent in excess of 88 minutes discontinuously in the care and management of this patient. This time is exclusive of procedures, and includes, but is not limited to, evaluation of the patient, review of the medical record, discussions with family, consultants, nursing staff, or respiratory therapy, and documentation in the medical record. Iain Herring MD Sep 06, 2016 10:44
[2016-09-06] MEDS: VASOPRESSIN INJ 40 UNITS in SODIUM CHLORIDE 0.9% INJ 98 ML IV SCH (10:53)
[2016-09-06 11:09] LABS: FREE T4 1.07 NG/DL (0.76-1.46)
[2016-09-06] MEDS: FLUDROCORTISONE ACETATE 0.1 MG TAB PO SCH ×2 (11:15→20:04)
[2016-09-06] MEDS ORDERED: MANNITOL INJ 50 ML ONE (14:21)
[2016-09-06] MEDS ORDERED: MANNITOL 12.5 GM/50 ML VIAL IV ONE (15:00)
--- NOTE | 2016-09-06 15:00 | RADRPT ---
EXAM DATE/TIME: 09/06/2016 09:33 [facility] COMPARISON: No previous studies available for comparison. INDICATIONS : Subarachnoid hemorrhage. MEDICAL HISTORY : Hypertension. Subarachnoid hemorrhage.Respiratory failure. Brain edema. Hydrocephalus. SURGICAL HISTORY : Right and left frontal dennis hole with placement of a ventriculostomy catheter. Right decompressive cr aniectomy. Endotracheal intubation. ENCOUNTER: Initial ACUITY: 1 day PAIN SCORE: Nonresponsive. LOCATION: Bilateral cranial Current Ultrasound: The Sep 06 2016 [place] Ratio: 2.0 3.9 Parrish Ratio: 1.4 2.6 FINDINGS: Examination performed at bedside. Real-time ultrasound with the assistance of color and spectral Dop pler was utilized to evaluate the intracerebral circulation. Time-averaged maximal velocities are ca lculated in cm/s. The examination demonstrates an elevated peak systolic velocity ratio on the right MCA. The lindegaar d ratio on the right is within normal limits. The elevated velocity on the right could suggest possib le mild vasospasm. This exam should be used as a baseline for the patient's followup evaluation. The peak systolic velocity on the left is in the upper range of normal. The lindegaard ratio is eleva inessa however this is likely secondary to the low velocity calculated within the distal left internal c arotid. Again this would suggest a mild degree of vasospasm. This examination should be used as a baseline for future assessment. CONCLUSION: 1. There is an elevated peak systolic velocity in the proximal right MCA suggesting possible mild vas ospasm. The lindegaard ratio is normal. This is the initial examination and should be used as a basel ine for followup studies. 2. Elevated lindegaard ratio on the left which is likely artifactual due to the slow velocities seen within the distal left internal carotid. Again, this is the patient's initial examination and should be used as baseline for followup. Arnie Knutson MD on September 06, 2016 at 14:37 Board Certified Radiologist. This report was verified electronically.
[2016-09-06] MEDS ORDERED: SODIUM CHLORIDE IV ONE (19:00)
[2016-09-06 21:33] LABS: BLOOD GAS BASE EXCESS -3.9 mmol/L (-2-2); BLOOD GAS CARBOXYHEMOGLOBIN 1.1 % (0-4); BLOOD GAS HCO3 20 mmol/L (22-26); BLOOD GAS METHEMOGLOBIN 1.1 % (0-2); BLOOD GAS O2 HGB SATURATION 98 % (90-100); BLOOD GAS PCO2 29 mmHg (38-42); BLOOD GAS PO2 214 mmHg (61-120); BLOOD GAS TOTAL HGB 7.6 G/DL (12.0-16.0); TEMP CORR TO 98.6
[2016-09-06 21:34] LABS: CRITICAL VALUE NO; DRAW SITE ART LINE; FIO2 40 %; OXYGEN DEVICE VENTILATOR; STAT NO; VENT SETTINGS A/C17/500/+5PEEP
[2016-09-06 23:34] LABS: BICARBONATE 22.1 MEQ/L (21.0-32.0); POTASSIUM 3.2 MEQ/L (3.5-5.1)
[2016-09-06 23:50] LABS: CALCIUM-PROTEIN CORRECTED 8.1 MG/DL (8.5-10.1)
[2016-09-07] VITALS (20 sets, daily range): BP systolic 146–162; BP diastolic 61–72; PULSE 48–60; RESP 15–17; TEMP 96.8–101.3; O2SAT 95–100
[2016-09-07] MEDS: 3% SALINE INJ 500 ML IV SCH ×2 (00:15→16:13)
[2016-09-07] MEDS: POTASSIUM CHLOR 40 MEQ PREMIX 100 ML IV PRN ×2 (00:33→01:53)
[2016-09-07] MEDS: PHENYLEPHRINE INJ 40 MG in SODIUM CHLORID 0.9% 500 ML INJ 496 ML IV SCH ×2 (00:34→14:21)
[2016-09-07] MEDS: SODIUM CHLORID 0.9% IV SCH ×2 (00:34→14:21)
[2016-09-07] MEDS: NOREPINEPHRINE IV SCH ×2 (00:34→14:21)
[2016-09-07] MEDS: CALCIUM GLUCONATE INJ 1 GM in SODIUM CHLORIDE 0.9% INJ 100 ML IV PRN (00:42)
[2016-09-07] MEDS: NS + KCL 20 MEQ INJ 1,000 ML IV SCH ×3 (01:53→20:17)
[2016-09-07] MEDS: ALBUMIN HUMAN 5% 25 GM/500 ML BOTTLE IV SCH ×4 (01:53→20:17)
[2016-09-07] MEDS: CHLORHEXIDINE GLUCONATE 2 % 1 PACK (2 CLOTHS) TOP SCH (04:00)
[2016-09-07] MEDS: levETIRAcetam INJ 500 MG in SODIUM CHLORIDE 0.9% INJ 100 ML IV SCH ×2 (04:38→16:14)
[2016-09-07] MEDS: niMODipine 30 MG CAP PO SCH ×5 (04:39→20:17)
[2016-09-07] MEDS: INSULIN NovoLIN REGULAR SUPPLEMENTAL SCALE SQ SCH ×3 (06:00→19:30)
[2016-09-07] MEDS: VASOPRESSIN INJ 40 UNITS in SODIUM CHLORIDE 0.9% INJ 98 ML IV SCH ×2 (06:13→22:19)
[2016-09-07 06:27] LABS: MEAN CELL VOLUME 90.8 FL (80.0-100.0); MEAN CORPUSCULAR HEMOGLOBIN 31.5 PG (27.0-34.0); MEAN CORPUSCULAR HGB CONC 34.6 % (32.0-36.0); PLATELET COUNT 98 TH/MM3 (150-450); RED BLOOD COUNT 2.23 MIL/MM3 (4.00-5.30); RED CELL DISTRIBUTION WIDTH 12.7 % (11.6-17.2); WHITE BLOOD COUNT 17.9 TH/MM3 (4.0-11.0)
[2016-09-07 06:30] LABS: REVIEW FLAG FINAL
[2016-09-07 06:31] LABS: HEMATOCRIT 20.3 % (35.0-46.0)
[2016-09-07] MEDS: PROPOFOL 1000 MG/100 ML INJ 100 ML IV SCH ×3 (06:53→21:29)
[2016-09-07 07:09] LABS: BICARBONATE 22.1 MEQ/L (21.0-32.0); POTASSIUM 3.4 MEQ/L (3.5-5.1)
[2016-09-07] MEDS: fentaNYL 2,500 MCG/NS 250 ML IV SCH ×2 (07:42→21:29)
[2016-09-07] MEDS: ACETAMINOPHEN 325 MG TAB PO PRN (08:13)
[2016-09-07] MEDS: PANTOPRAZOLE SOD 40 MG DELAYED RELEASE TAB PO SCH (09:00)
[2016-09-07] MEDS: DOCUSATE SODIUM 100 MG CAP PO SCH ×2 (09:00→22:18)
[2016-09-07] MEDS: SODIUM CHLORIDE 0.9% FLUSH 5 ML FLUSH IVF SCH ×2 (10:41→22:18)
[2016-09-07] MEDS: ARTIFICIAL TEARS OPTH SOLN 15 ML BTL EACH EYE SCH ×3 (10:41→18:25)
[2016-09-07] MEDS: FAMOTIDINE 20 MG/2 ML VIAL IV PUSH SCH ×2 (10:41→22:18)
[2016-09-07] MEDS: FLUDROCORTISONE ACETATE 0.1 MG TAB PO SCH (10:42)
[2016-09-07] MEDS: DOCUSATE SODIUM 100 MG/10 ML UDC G-TUBE SCH (10:42)
[2016-09-07] MEDS: PRAVASTATIN SOD 40 MG TAB PO SCH (10:45)
[2016-09-07] MEDS: PANTOPRAZOLE SODIUM 40 MG VIAL IVP SCH ×2 (10:46→10:56)
--- NOTE | 2016-09-07 12:14 | HHI.NSPN ---
(Sarah Thompson) Note Status Status: Progress Note (Sarah Thompson) Interval History Interval History This is a 67 years old female was transferred to [facility] from [facility] for a subarachnoid hemorrhage. She suddenly developed severe headache and then vomited. No seizure activity. No tongue bitting. No tonic clonic movements. no incontinence of stool or urine. CT scan of the brain done at [facility] in [place] shows extensive subarachnoid and intraventricular hemorrhage with early obstructive hydrocephalus. 09/05: s/p placement of ventriculostomy drain, CTA shows right PCOM aneurysm, ICPs <20 09/06: pt underwent endovascular coiling of right PCOM aneurysm yesterday, f/u CT Brain yesterday showed increased SAH with right SDH causing significant midline shift, she underwent emergent decompressive craniectomy with evacuation of SDH, and placement of left ventriculostomy drain. She is on 3% NS, ICPs as high as 21. EVD draning well bloody CSF. 09/07: ICPs 23. Intubated, sedated. EVD draining bloody CSF. Serum sodium 152. pco2 34. (Sarah Thompson) Labs, Micro, & Vital Signs Results Date Time Temp Pulse Resp B/P Pulse Ox O2 Delivery O2 Flow Rate FiO2 09/07/16 11:16 100 40 09/07/16 08:07 100 40 09/07/16 08:07 100 40 09/07/16 06:00 55 09/07/16 04:08 100 40 09/07/16 04:00 99.7 54 15 150/66 100 09/07/16 04:00 54 09/07/16 04:00 40 09/07/16 02:00 55 09/07/16 01:12 100 40 09/07/16 01:00 100 40 09/07/16 00:00 52 09/07/16 00:00 96.8 52 15 146/62 100 09/07/16 00:00 40 09/06/16 22:00 60 09/06/16 20:55 100 40 09/06/16 20:00 60 09/06/16 20:00 40 09/06/16 20:00 98.2 60 17 134/57 100 09/06/16 18:00 58 09/06/16 16:00 40 09/06/16 16:00 98.4 59 17 155/68 100 09/06/16 16:00 59 09/06/16 14:00 55 09/06/16 12:31 100 40 09/07/16 07:00 Intake Total 9463 ml Output Total 20363 ml Balance -564 ml Constitutional Vital Signs Date Time Temp Pulse Resp B/P Pulse Ox O2 Delivery O2 Flow Rate FiO2 09/07/16 11:16 100 40 09/07/16 08:07 100 40 09/07/16 08:07 100 40 09/07/16 06:00 55 09/07/16 04:08 100 40 09/07/16 04:00 99.7 54 15 150/66 100 09/07/16 04:00 54 09/07/16 04:00 40 09/07/16 02:00 55 09/07/16 01:12 100 40 09/07/16 01:00 100 40 09/07/16 00:00 52 09/07/16 00:00 96.8 52 15 146/62 100 09/07/16 00:00 40 09/06/16 22:00 60 09/06/16 20:55 100 40 09/06/16 20:00 60 09/06/16 20:00 40 09/06/16 20:00 98.2 60 17 134/57 100 09/06/16 18:00 58 09/06/16 16:00 40 09/06/16 16:00 98.4 59 17 155/68 100 09/06/16 16:00 59 09/06/16 14:00 55 09/06/16 12:31 100 40 09/07/16 07:00 Intake Total 9463 ml Output Total 92252 ml Balance -564 ml (Sarah Thompson) Review of Systems/Exam Exam Ms. Lopez is intubated and sedated, she does not open eyes or follow commands. Mildly moved her head to pain stimuli. Left ventriculostomy drain at 0 cm H20, draining bloody CSF. Right flap very full and tight. Cranial nerve examination: pupils 2 mm left, 3 mm right. Conjugate gaze. Motor: no spontaneous movements Sensorimotor: minimally withdraws to left lower extremity Bilateral plantars silent Cerebellar exam cannot be assessed due to clinical condition (Sarah Thompson ) Medications Current Medications Current Medications Medications (Trade) Dose Ordered Sig/Van Route PRN Reason Start Time Stop Time Status Last Admin Dose Admin Propofol (Diprivan 1000 Mg/100ml Inj) 100 ml @ 0 mls/hr TITRATE IV 09/04/16 23:00 09/07/16 06:53 Famotidine (Pepcid Inj) 20 mg Q12HR IV PUSH 09/05/16 09:00 09/07/16 10:41 Artificial Tears (Tears Naturale Opth Soln) 1 drop TID EACH EYE 09/05/16 09:00 09/07/16 10:41 Docusate Sodium (Colace Liq) 100 mg Q12H G-TUBE 09/04/16 00:00 09/07/16 10:42 Miscellaneous Information 1 Q361D XX 09/04/16 23:15 Chlorhexidine Gluconate (Chlorhexidine 2% Cloth) 3 pack Taper DAILY@04 TOP 09/05/16 04:00 09/01/17 03:59 09/07/16 04:00 Chlorhexidine Gluconate 3 pack 3 pack UNSCH PRN TOP HYGIENIC CARE 09/04/16 23:15 Nicardipine HCl/ Sodium Chloride (Cardene Inj/NS 250 ml Inj) 260 ml @ 0 mls/hr TITRATE IV 09/04/16 23:15 Hydralazine HCl 20 mg 20 mg Q4H PRN IV PUSH SBP>160, DBP>90 09/04/16 23:15 Sodium Chloride 500 ml @ 30 mls/hr Q16H IV 09/05/16 00:15 09/07/16 00:15 Fentanyl Citrate 250 ml @ 0 mls/hr TITRATE IV 09/05/16 00:30 09/07/16 07:42 Potassium Chloride 100 ml @ 50 mls/hr Q2H PRN IV For Potassium 2.8 - 3.2 mEq/L 09/05/16 01:45 09/07/16 01:53 Potassium Chloride (KCl 20 Meq Premix Inj) 100 ml @ 50 mls/hr Q2H PRN IV For Potassium 2.8 - 3.2 mEq/L 09/05/16 01:45 Potassium Chloride 40 meq 40 meq UNSCH PRN PO/TUBE For Potassium 3.3 - 3.5 mEq/L 09/05/16 01:45 Potassium Chloride 100 ml @ 25 mls/hr UNSCH PRN IV For Potassium 3.3 - 3.5 mEq/L 09/05/16 01:45 09/07/16 08:12 Potassium Chloride 100 ml @ 50 mls/hr Q2H PRN IV For Potassium 3.3 - 3.5 mEq/L 09/05/16 01:45 Magnesium Sulfate/ Sodium Chloride (Magnesium Sulfate Inj/NS Inj) 100 ml @ 50 mls/hr UNSCH PRN IV For Magnesium 0.9 - 1.1 mg/dL 09/05/16 01:45 Magnesium Oxide 800 mg 800 mg UNSCH PRN PO For Magnesium 1.2 - 1.6 mg/dL 09/05/16 01:45 Magnesium Sulfate/ Sodium Chloride (Magnesium Sulfate Inj/NS Inj) 100 ml @ 50 mls/hr UNSCH PRN IV For Magnesium 1.2 - 1.6 mg/dL 09/05/16 01:45 Potassium Phosphate 2000 mg 2,000 mg Q4H PRN PO For Phosphorus < 2.5 mg/dL 09/05/16 01:45 Sodium Phosphate/ Sodium Chloride (Sodium Phosphate Inj/NS 250 ml Inj) 250 ml @ 42 mls/hr UNSCH PRN IV For Phosphorus < 2.5 mg/dL 09/05/16 01:45 Potassium Chloride (KCl 40 Meq/30 ml Liq) 40 meq UNSCH PRN PO/TUBE SEE LABEL COMMENTS 09/05/16 01:45 Potassium Phosphate 2000 mg 2,000 mg UNSCH PRN PO/TUBE SEE LABEL COMMENTS 09/05/16 01:45 Potassium Phosphate/Sodium Chloride (Potassium Phosphate Inj/NS 250 ml Inj) 260 ml @ 42 mls/hr UNSCH PRN IV SEE LABEL COMMENTS 09/05/16 01:45 Nimodipine (Nimotop) 60 mg Q4HR PO 09/05/16 04:00 09/07/16 08:12 Pravastatin Sodium (Pravachol) 40 mg DAILY PO 09/05/16 09:00 09/07/16 10:45 Dextrose (D50w (Vial) Inj) 25 ml UNSCH PRN IV PUSH HYPOGLYCEMIA-SEE COMMENTS 09/05/16 07:30 Insulin Human Regular 1 1 Q6HR SQ 09/05/16 12:00 Potassium Chloride/Sodium Chloride (NS + KCl 20 Meq Inj) 1,000 ml @ 100 mls/hr Q10H IV 09/05/16 16:00 09/07/16 01:53 IV Flush (NS Flush) 2 ml UNSCH PRN IVF FLUSH AFTER USING IV ACCESS 09/05/16 15:30 IV Flush 2 ml 2 ml BID IVF 09/05/16 21:00 09/07/16 10:41 Levetriacetam/ Sodium Chloride (Keppra Inj/NS Inj) 105 ml @ 400 mls/hr Q12H IV 09/05/16 16:00 09/07/16 04:38 Bisacodyl (Dulcolax Supp) 10 mg DAILY PRN [place] CONSTIPATION 09/05/16 15:30 Docusate Sodium (Colace) 100 mg BID PO 09/05/16 21:00 09/06/16 08:02 Pantoprazole Sodium (Protonix) 40 mg DAILY PO 09/06/16 09:00 Pantoprazole Sodium (Protonix Inj) 40 mg DAILY IVP 09/06/16 09:00 09/07/16 10:56 Ondansetron HCl 4 mg 4 mg Q6H PRN IV NAUSEA OR VOMITING 09/05/16 15:30 Potassium Chloride 100 ml @ 50 mls/hr UNSCH PRN IV POTASSIUM LESS THAN 4 09/05/16 15:30 Magnesium Sulfate/ Sodium Chloride (Magnesium Sulfate Inj/NS Inj) 108 ml @ 108 mls/hr UNSCH PRN IV MAGNESIUM LESS THAN 2 09/05/16 15:30 Acetaminophen/ Hydrocodone Bitart ([place] 10-325 Mg) 1 tab Q4H PRN PO PAIN SCALE 1 TO 5 09/05/16 15:30 Acetaminophen/ Hydrocodone Bitart ([place] 10-325 Mg) 2 tab Q4H PRN PO PAIN SCALE 6 TO 10 09/05/16 15:30 Morphine Sulfate (Morphine Inj) 2 mg Q2H PRN IV PUSH PAIN SCALE 1 TO 6 09/05/16 15:30 Morphine Sulfate (Morphine Inj) 4 mg Q2H PRN IV PUSH PAIN SCALE 7 TO 10 09/05/16 15:30 Acetaminophen (Tylenol) 650 mg Q4H PRN PO TEMPERATURE > 101.5 F 09/05/16 15:30 3/1/17 08:13 Albumin Human 25 gm 25 gm Q6H IV 09/05/16 20:00 09/07/16 08:12 Vasopressin 40 units/Sodium Chloride 100 ml @ 6 mls/hr [id number] IV 09/05/16 19:01 09/07/16 06:13 Calcium Gluconate 1 gm/Sodium Chloride 110 ml @ 110 mls/hr UNSCH PRN IV PROTEIN CORRECTED CALCIUM <8.5 09/05/16 21:00 09/07/16 00:42 Phenylephrine HCl 40 mg/Sodium Chloride 500 ml @ 0 mls/hr TITRATE IV 09/06/16 01:30 09/07/16 00:34 Norepinephrine Bitartrate/Sodium Chloride (Levophed Inj/NS 500 ml Inj) 508 ml @ 0 mls/hr TITRATE IV 09/06/16 00:30 09/07/16 00:34 Fludrocortisone Acetate (Florinef) 0.1 mg Q12HR PO 09/06/16 11:00 09/07/16 10:42 (Sarah Thompson) Medical Decision Making MDM Remarks 50 y/o with subarachnoid hemorrhage, right PCOM aneurysm, s/p endovascular coiling 09/05/16 f/u CT Brain 09/05 with extensive SAH, IVH, and right subdural hemorrhage with significant right to left midline shift s/p right decompressive craniectomy with evacuation of SDH, and left ventriculostomy drain placement 09/05/16, (Sarah Thompson) Plan Plan Remarks cont 3% NS, cont target PCO2 30-35 cont ventriculostomy draining with close ICP monitoring cont keep well sedated nonchemical DVT prophylaxis in view of ICH dw nursing, dw Dr. Herring (Sarah Thompson) Attending Statement The exam, history, and the medical decision-making described in the above note were completed with the assistance of the mid-level provider. I reviewed and agree with the findings presented. I attest that I had a [id number] encounter with the patient on the same day, and personally performed and documented my assessment and findings in the medical record. (Jorgito Oswald MD) Sarah Thompson Sep 07, 2016 12:14 Jorgito Oswald MD Sep 07, 2016 14:39
--- NOTE | 2016-09-07 12:22 | RADRPT ---
EXAM DATE/TIME: 09/07/2016 08:17 [facility] COMPARISON: US TRANSCRANIAL DOPPLER COMPLETE, September 06, 2016, 9:33. INDICATIONS : Subarachnoid hemorrhage. MEDICAL HISTORY : Hypertension. Subarachnoid hemorrhage. Respiratory failure. Brain edema. Hydrocephalus. SURGICAL HISTORY : Right and left frontal dennis hole with placement of a ventriculostomy catheter. Right decompressive cr aniectomy. Endotracheal intubation. ENCOUNTER: Subsequent ACUITY: 2 days PAIN SCORE: Nonresponsive. LOCATION: Bilateral cranial Current Ultrasound: Sep 07 2016. [place]ard Ratio: 2.2 1.6 Parrish Ratio: 1.2 1.1 Previous Ultrasound: Sep 06 2016. [place]ard Ratio: 2.0 3.9 Parrish Ratio: 1.4 2.6 FINDINGS: Examination performed at bedside. Real-time ultrasound with the assistance of color and spectral Dop pler was utilized to evaluate the intracerebral circulation. Time-averaged maximal velocities are ca lculated in cm/s. CONCLUSION: Interval improvement with minimal elevated velocities in the right mca as described previously. Bhupendra Knutson MD FACR on September 07, 2016 at 12:18 Board Certified Radiologist. This report was verified electronically.
--- NOTE | 2016-09-07 14:57 | HHI.CCPN ---
Subjective Remarks/Hospital Course Hospital Course: 50 year old female who presents to the [facility] emergency department with a severe headache that began prior to arrival at [facility] emergency department. The patient's headache was reportedly severe and associated with nausea and vomiting and a decreased level of consciousness, therefore the patient was intubated. She underwent a CT scan of the brain that showed a subarachnoid hemorrhage and was accepted for transfer by Dr. Oswald, the neurosurgeon on-call. Subjective: 09/05: taken to IR for coiling of aneurysm. however, before coiling took place, ICPs suddenly elevated, followed by severe hypertension, bradycardia, and pupilary change. emergently controlled bp, continued to move forward with coiling. IR with good coiling outcome. post-coiling CT head demonstrates re- bleed with significant mass effect on the 3rd and 4th ventricles. taken emergently to OR for right decompressive hemicraniectomy. 09/06: overnight, significantly hypotensive. added vasopressin and phenylephrine. still on levo as well. ICP controlled. this morning, withdrawing on right, nothing on left. stat echo overnight hyperdynamic, otherwise normal. uop almost 600cc/hr. attempting to maintain euvolemia. 09/07: ICPs yony yesterday evening and overnight. sedated to control. Na 152 this AM. poor neuro exam. still remains in distributive shock on 3 pressors. minimal improvements. Objective Vital Signs Date Time Temp Pulse Resp B/P Pulse Ox O2 Delivery O2 Flow Rate FiO2 09/07/16 11:16 100 40 09/07/16 06:00 55 09/07/16 04:00 99.7 15 150/66 09/06/16 07:00 Mechanical Ventilator Intake and Output 09/06/16 09/06/16 09/07/16 08:00 16:00 00:00 Intake Total 4600 ml 2937 ml 3062 ml Output Total 4191 ml 3424 ml 4618 ml Balance 409 ml -487 ml -1556 ml Result Diagram: 09/07/16 0600 09/07/16 1240 Other Results Microbiology Date/Time Procedure Status Source Growth 09/04/16 23:30 Gram Stain - Final Complete Cerebral Spinal Fluid Lumbar Puncture 09/04/16 23:30 CSF Culture - Final Complete Cerebral Spinal Fluid Lumbar Puncture NO GROWTH IN 72 HOURS Laboratory Tests Test 09/06/16 21:22 Blood Gas Puncture Site ART LINE Blood Gas Patient Temperature 98.6 Blood Gas HCO3 20 mmol/L (22-26) Blood Gas Base Excess -3.9 mmol/L (-2-2) Blood Gas Oxygen Saturation 98 % (90-100) Arterial Blood pH 7.44 (7.380-7.420) Arterial Blood Partial 29 mmHg (38-42) Pressure CO2 Arterial Blood Partial 214 mmHg Pressure O2 (61-120) Arterial Blood Oxygen Content 11.0 Vol % (12.0-20.0) Arterial Blood 1.1 % (0-4) Carboxyhemoglobin Arterial Blood Methemoglobin 1.1 % (0-2) Blood Gas Hemoglobin 7.6 G/DL (12.0-16.0) Oxygen Delivery Device VENTILATOR Blood Gas Ventilator Setting A/C17/500/+5PEEP Blood Gas Inspired Oxygen 40 % Imaging Last [address] 09/05/16 0000 Signed Impressions: Service Date/Time: Monday, September 05, 2016 13:54 - CONCLUSION: 1. The patient is post coiling of a right P-comm aneurysm. 2. There is extensive subdural, subarachnoid and intraventricular hemorrhage. The overall amount of intraventricular hemorrhage has increased when compared to the previous exam. The amount of right to left falcine shift has increased when compared to previous as well. 3. The perimesencephalic cisterns appear similar to previous dated 09/05/16. Arnie Knutson MD Embolization, Transcatheter 09/05/16 0000 Signed Impressions: Service Date/Time: Monday, September 05, 2016 11:12 - CONCLUSION: 1. Successful coiling of the patient's posterior communicating artery aneurysm. There was complete exclusion of the aneurysm from the circulation at the conclusion of the procedure. Arnie Knutson MD Objective Remarks GENERAL: young female, critically ill, comatose, intubated SKIN: Warm and dry. HEAD: wrapped in Kerlix dressing. EVD site looks good. EYES: No scleral icterus. No injection or drainage. bilateral pupils 3mm, equal , reactive. NECK: Supple, trachea midline. No JVD CARDIOVASCULAR: Regular rate and rhythm without appreciable murmurs RESPIRATORY: Breath sounds equal bilaterally. No accessory muscle use. GASTROINTESTINAL: Abdomen soft, non-tender, nondistended. MUSCULOSKELETAL: No cyanosis, or edema. EXTREMITIES: distal pulses 2+, no peripheral edema neuro: RASS -5. withdraws on right, nothing on left. A/P Problem List: (1) Subarachnoid hemorrhage ICD Code: I60.9 Status: Acute Assessment and Plan Assessment: This is a 50yF with Aneurysmal SAH and PCOM Aneurysm, Post-Bleed Day 3 and POD 2 s/p endovascular coiling, course complicated by re-bleed, severely elevated ICP, transtentorial herniation, now s/p right decompressive hemicraniectomy. ICP rising likely secondary to ongoing malignant cerebral edema. Discussed care with Dr. Oswald, will obtain EEG, keep sedated today while elevated ICP, 1 unit prbc given severe anemia. Again talked with family at bedside. continue to have aggressive goals. She remains critically ill at this point. I have discussed her care with Dr. Oswald who agrees with our joint plan and continued aggressive care. I have updated at bedside. Plan by systems: Neurologic: Aneurysmal subarachnoid bleed PCOM aneurysm Status post endovascular coiling Rebleed Transtentorial herniation Malignant intracranial hypertension s/p right decompressive hemicraniectomy Hyperosmolar therapy targeting serum sodium 150-155, osm> 300. --q1h neuro checks --Nsgy: Dr. Oswald following --HOB at 30 degrees --no sedation vacation given elevated ICP. Nimodipine Respiratory: Acute hypoxic and hypercarbic respiratory failure Vent bundle Head of bed 30 Does not meet SBT criteria given intracranial pathology Wean FiO2 for goal SPO2 greater than 92% Avoid hypercarbia Nebs every 6 and every 2 when necessary -- etco2 monitoring, maintain 30-35. Cardiovascular: Hypertensive emergency- resolved. Severe Vasoplegia/Distributive Shock Nimodipine for subarachnoid hemorrhage --phenylephrine, norepinephrine, vasopressin to maintain cerebral perfusion pressure. Maintenance fluids, normal saline decrease to 50 cc an hour, goal euvolemia. Avoid hypovolemia --2d echo 09/05: normal biventricular function, no valvular lesions, EF > 55%. -- empiric fludrocortisone 0.1 BID for presumed adrenal insufficiency -- albumin 5% q6h. Renal: Valerio for accurate I's and O's -- Strict I/Os -- maintain euvolemia. FEN/GI: Acute Protein calorie malnutrition- mild Hyperosmolar therapy Hypokalemia Hypocalcemia ICU electrolyte protocol Sodiums every 6 Nothing by mouth while on vasopressors. Daily BMP Heme/ID: Anemia acute blood loss Leukocytosis Daily CBC Does not meet transfusion triggers at this time No infectious etiology suspected this time, leukocytosis is likely reactive. if she spikes fever, will avery culture and start empiric antibiotics. Endocrine: Hyperglycemia of critical illness Presumed Adrenal Insufficiency -- SSI, every 6 hours, medium scale -- empiric fludrocortisone 0.1mg po q12h -- random cortisol, tsh, free t4 all appropriate. Prophylaxis: GI Prophylaxis Protonix 40 mg IV every 24 hours DVT Prophylaxis -- SCDs Holding pharmacologic DVT prophylaxis in the setting of intracranial bleeding Lines: 09/04 femoral triple lumen catheter. given elevated ICP, too high risk to place upper CVL, will continue femoral triple lumen for now. 09/04 right brachial arterial line- we will leave for today, though will plan on changing this for radial art line in the next few days. Valerio --EVD Dispo: Remain in the ICU. She remains very critically ill. This patient remains critically ill with one or more organ systems which are or may become a threat to life. I have spent in excess of 63 minutes discontinuously in the care and management of this patient. This time is exclusive of procedures, and includes, but is not limited to, evaluation of the patient, review of the medical record, discussions with family, consultants, nursing staff, or respiratory therapy, and documentation in the medical record. Iain Herring MD Sep 07, 2016 14:57
[2016-09-07] MEDS: MIDAZOLAM HCL 5 MG/ML VIAL (1 ML) ONE ×2 (17:27→17:30)
[2016-09-07] MEDS ORDERED: MIDAZOLAM HCL 5 MG/ML VIAL (1 ML) IV ONE (17:45)
[2016-09-07] MEDS ORDERED: MIDAZOLAM HCL 5 MG/ML VIAL (1 ML) IVP ONE (21:45)
[2016-09-07 22:04] LABS: BLOOD GAS BASE EXCESS -4.1 mmol/L (-2-2); BLOOD GAS CARBOXYHEMOGLOBIN 1.2 % (0-4); BLOOD GAS HCO3 20 mmol/L (22-26); BLOOD GAS METHEMOGLOBIN 0.9 % (0-2); BLOOD GAS O2 HGB SATURATION 91 % (90-100); BLOOD GAS OXYGEN CONTENT 10.4 Vol % (12.0-20.0); BLOOD GAS PCO2 36 mmHg (38-42); BLOOD GAS PO2 68 mmHg (61-120); CRITICAL VALUE NO; OXYGEN DEVICE VENTILATOR; TEMP CORR TO 98.6
[2016-09-07 22:05] LABS: FIO2 35 %
[2016-09-07 22:06] LABS: DRAW SITE ART LINE; STAT NO
[2016-09-07] MEDS: MIDAZOLAM 100 MG/ML INJ 100 ML IV SCH (22:17)
[2016-09-08] VITALS (16 sets, daily range): BP systolic 130–157; BP diastolic 56–71; PULSE 51–77; RESP 14–34; TEMP 96.6–101.6; O2SAT 94–100
[2016-09-08] MEDS: niMODipine 30 MG CAP PO SCH ×5 (00:25→16:00)
[2016-09-08] MEDS: FLUDROCORTISONE ACETATE 0.1 MG TAB PO SCH ×2 (00:25→09:00)
[2016-09-08] MEDS: DOCUSATE SODIUM 100 MG/10 ML UDC G-TUBE SCH ×2 (00:52→12:00)
[2016-09-08] MEDS ORDERED: CISATRACURIUM BESYLATE 20 MG/10 ML VIAL IVP ONE (02:00)
[2016-09-08] MEDS: ALBUMIN HUMAN 5% 25 GM/500 ML BOTTLE IV SCH ×2 (02:44→08:00)
[2016-09-08] MEDS: PROPOFOL 1000 MG/100 ML INJ 100 ML IV SCH ×2 (02:45→06:55)
[2016-09-08] MEDS: levETIRAcetam INJ 500 MG in SODIUM CHLORIDE 0.9% INJ 100 ML IV SCH ×2 (04:00→16:00)
[2016-09-08 04:49] LABS: HEMATOCRIT 25.8 % (35.0-46.0); MEAN CELL VOLUME 90.5 FL (80.0-100.0); MEAN CORPUSCULAR HEMOGLOBIN 31.4 PG (27.0-34.0); MEAN CORPUSCULAR HGB CONC 34.7 % (32.0-36.0); PLATELET COUNT 102 TH/MM3 (150-450); RED BLOOD COUNT 2.85 MIL/MM3 (4.00-5.30); REVIEW FLAG FINAL; WHITE BLOOD COUNT 20.9 TH/MM3 (4.0-11.0)
[2016-09-08 05:15] LABS: BICARBONATE 23.1 MEQ/L (21.0-32.0)
[2016-09-08 05:23] LABS: POTASSIUM 2.8 MEQ/L (3.5-5.1)
[2016-09-08] MEDS: NOREPINEPHRINE IV SCH (05:38)
[2016-09-08] MEDS: PHENYLEPHRINE INJ 40 MG in SODIUM CHLORID 0.9% 500 ML INJ 496 ML IV SCH (05:38)
[2016-09-08] MEDS: SODIUM CHLORID 0.9% IV SCH (05:38)
[2016-09-08] MEDS: NS + KCL 20 MEQ INJ 1,000 ML IV SCH (05:38)
[2016-09-08] MEDS: CHLORHEXIDINE GLUCONATE 2 % 1 PACK (2 CLOTHS) TOP SCH (05:39)
[2016-09-08] MEDS: POTASSIUM CHLOR 40 MEQ PREMIX 100 ML IV PRN ×3 (05:52→23:16)
[2016-09-08] MEDS: INSULIN NovoLIN REGULAR SUPPLEMENTAL SCALE SQ SCH ×3 (06:00→17:47)
[2016-09-08] MEDS: MIDAZOLAM 100 MG/ML INJ 100 ML IV SCH (06:55)
[2016-09-08] MEDS: 3% SALINE INJ 500 ML IV SCH (08:15)
[2016-09-08] MEDS: DOCUSATE SODIUM 100 MG CAP PO SCH (08:32)
[2016-09-08] MEDS: SODIUM CHLORIDE 0.9% FLUSH 5 ML FLUSH IVF SCH ×2 (08:32→23:16)
[2016-09-08] MEDS: PRAVASTATIN SOD 40 MG TAB PO SCH (08:32)
[2016-09-08] MEDS: PANTOPRAZOLE SOD 40 MG DELAYED RELEASE TAB PO SCH (08:32)
[2016-09-08] MEDS: FAMOTIDINE 20 MG/2 ML VIAL IV PUSH SCH (08:32)
[2016-09-08] MEDS: PANTOPRAZOLE SODIUM 40 MG VIAL IVP SCH (08:32)
[2016-09-08] MEDS: ARTIFICIAL TEARS OPTH SOLN 15 ML BTL EACH EYE SCH ×3 (09:00→23:16)
[2016-09-08] MEDS ORDERED: POLYETHYLENE GLYCOL 17 GM PKG PO SCH (11:15)
--- NOTE | 2016-09-08 11:19 | HHI.CCPN ---
Subjective Remarks/Hospital Course Hospital Course: 50 year old female who presents to the [facility] emergency department with a severe headache that began prior to arrival at [facility] emergency department. The patient's headache was reportedly severe and associated with nausea and vomiting and a decreased level of consciousness, therefore the patient was intubated. She underwent a CT scan of the brain that showed a subarachnoid hemorrhage and was accepted for transfer by Dr. Oswald, the neurosurgeon on-call. Subjective: 09/05: taken to IR for coiling of aneurysm. however, before coiling took place, ICPs suddenly elevated, followed by severe hypertension, bradycardia, and pupilary change. emergently controlled bp, continued to move forward with coiling. IR with good coiling outcome. post-coiling CT head demonstrates re- bleed with significant mass effect on the 3rd and 4th ventricles. taken emergently to OR for right decompressive hemicraniectomy. 09/06: overnight, significantly hypotensive. added vasopressin and phenylephrine. still on levo as well. ICP controlled. this morning, withdrawing on right, nothing on left. stat echo overnight hyperdynamic, otherwise normal. uop almost 600cc/hr. attempting to maintain euvolemia. 09/07: ICPs yony yesterday evening and overnight. sedated to control. Na 152 this AM. poor neuro exam. still remains in distributive shock on 3 pressors. minimal improvements. 09/08: ICPs continued to be high throughout yesterday, requiring addition of versed and fentanyl to propofol. some hemodynamic improvements. still very critical. TCDs yesterday improving, however today Dr. West called to say TCD today shows probable spasm. ordering stat CT/CTA brain. updated at bedside. Objective Vital Signs Date Time Temp Pulse Resp B/P Pulse Ox O2 Delivery O2 Flow Rate FiO2 09/08/16 08:16 97 60 09/08/16 08:00 54 09/08/16 08:00 97.2 14 136/63 09/06/16 07:00 Mechanical Ventilator Intake and Output 09/07/16 09/07/16 09/08/16 08:00 16:00 00:00 Intake Total 2873 ml 3218 ml 1904 ml Output Total 1698 ml 1740 ml 1316 ml Balance 1175 ml 1478 ml 588 ml Result Diagram: 09/08/16 0415 09/08/16 0415 Other Results Microbiology Date/Time Procedure Status Source Growth 09/05/16 15:44 Gram Stain - Final Complete Cerebral Spinal Fluid Lumbar Puncture 09/05/16 15:44 CSF Culture - Final Complete Cerebral Spinal Fluid Lumbar Puncture NO GROWTH IN 72 HOURS Laboratory Tests Test 09/07/16 21:45 Blood Gas Puncture Site ART LINE Blood Gas Patient Temperature 98.6 Blood Gas HCO3 20 mmol/L (22-26) Blood Gas Base Excess -4.1 mmol/L (-2-2) Blood Gas Oxygen Saturation 91 % (90-100) Arterial Blood pH 7.37 (7.380-7.420) Arterial Blood Partial 36 mmHg (38-42) Pressure CO2 Arterial Blood Partial 68 mmHg Pressure O2 (61-120) Arterial Blood Oxygen Content 10.4 Vol % (12.0-20.0) Arterial Blood 1.2 % (0-4) Carboxyhemoglobin Arterial Blood Methemoglobin 0.9 % (0-2) Blood Gas Hemoglobin 8.0 G/DL (12.0-16.0) Oxygen Delivery Device VENTILATOR Blood Gas Ventilator Setting SEE COMMENT Blood Gas Inspired Oxygen 35 % Imaging Last [address] 09/05/16 0000 Signed Impressions: Service Date/Time: Monday, September 05, 2016 13:54 - CONCLUSION: 1. The patient is post coiling of a right P-comm aneurysm. 2. There is extensive subdural, subarachnoid and intraventricular hemorrhage. The overall amount of intraventricular hemorrhage has increased when compared to the previous exam. The amount of right to left falcine shift has increased when compared to previous as well. 3. The perimesencephalic cisterns appear similar to previous dated 09/05/16. Arnie Knutson MD Embolization, Transcatheter 09/05/16 0000 Signed Impressions: Service Date/Time: Monday, September 05, 2016 11:12 - CONCLUSION: 1. Successful coiling of the patient's posterior communicating artery aneurysm. There was complete exclusion of the aneurysm from the circulation at the conclusion of the procedure. Arnie Knutson MD Objective Remarks GENERAL: young female, critically ill, comatose, intubated, deeply sedated. SKIN: Warm and dry. HEAD: wrapped in Kerlix dressing. EVD site looks good. EYES: No scleral icterus. No injection or drainage. bilateral pupils 3mm, equal , reactive. NECK: Supple, trachea midline. No JVD CARDIOVASCULAR: Regular rate and rhythm without appreciable murmurs RESPIRATORY: Breath sounds equal bilaterally. No accessory muscle use. GASTROINTESTINAL: Abdomen soft, non-tender, nondistended. MUSCULOSKELETAL: No cyanosis, or edema. EXTREMITIES: distal pulses 2+, no peripheral edema neuro: RASS -5. GCS 3. A/P Problem List: (1) Subarachnoid hemorrhage ICD Code: I60.9 Status: Acute Assessment and Plan Assessment: This is a 50yF with Aneurysmal SAH and PCOM Aneurysm, Post-Bleed Day 4 and POD 3 s/p endovascular coiling, course complicated by re-bleed, severely elevated ICP, transtentorial herniation, now s/p right decompressive hemicraniectomy. ICPs improved, though deeply sedated. Discussed with Dr. West, likely vasospasm. STAT CT/CTA then possible intervention. Discussed care with Dr. Oswald, follow ICP today, keep sedated today while elevated ICP, continue to have aggressive goals. She remains critically ill at this point. I have discussed her care with Dr. Oswald who agrees with our joint plan and continued aggressive care. Plan by systems: Neurologic: Aneurysmal subarachnoid bleed PCOM aneurysm Status post endovascular coiling Rebleed Transtentorial herniation Malignant intracranial hypertension s/p right decompressive hemicraniectomy Cerebral Vasospasm Hyperosmolar therapy targeting serum sodium 150-155, osm> 300. --q1h neuro checks --Nsgy: Dr. Oswald following --HOB at 30 degrees --no sedation vacation given elevated ICP. Nimodipine --stat CT/CTA brain -- possible IR angio. Respiratory: Acute hypoxic and hypercarbic respiratory failure Vent bundle Head of bed 30 Does not meet SBT criteria given intracranial pathology Wean FiO2 for goal SPO2 greater than 92% Avoid hypercarbia Nebs every 6 and every 2 when necessary -- etco2 monitoring, maintain 30-35. Cardiovascular: Hypertensive emergency- resolved. Severe Vasoplegia/Distributive Shock- resolving Cerebral Vasospasm Nimodipine for subarachnoid hemorrhage --phenylephrine, norepinephrine, vasopressin to maintain cerebral perfusion pressure. --increase SBP goals to 140 - 180 in the setting of cerebral vasospasm. d/c mivf as she was net +2L yesterday. Avoid hypovolemia --2d echo 09/05: normal biventricular function, no valvular lesions, EF > 55%. -- hold fludricortisone given bp improvements. -- hold albumin 5% q6h. Renal: Valerio for accurate I's and O's -- Strict I/Os -- maintain euvolemia. FEN/GI: Acute Protein calorie malnutrition- mild Hyperosmolar therapy Hypokalemia Hypocalcemia ICU electrolyte protocol Sodiums every 6 Nothing by mouth while on vasopressors. Daily BMP Heme/ID: Anemia acute blood loss Leukocytosis Daily CBC Does not meet transfusion triggers at this time No infectious etiology suspected this time, leukocytosis is likely reactive. if she spikes fever, will avery culture and start empiric antibiotics. Endocrine: Hyperglycemia of critical illness Presumed Adrenal Insufficiency -- SSI, every 6 hours, medium scale -- hold fludrocortisone -- random cortisol, tsh, free t4 all appropriate. Prophylaxis: GI Prophylaxis Protonix 40 mg IV every 24 hours DVT Prophylaxis -- SCDs Holding pharmacologic DVT prophylaxis in the setting of intracranial bleeding Lines: 09/04 femoral triple lumen catheter. 09/04 right brachial arterial line- we will leave for today, though will plan on changing this for radial art line in the next few days. Iman --EVD Dispo: Remain in the ICU. She remains very critically ill. This patient remains critically ill with one or more organ systems which are or may become a threat to life. I have spent in excess of 81 minutes discontinuously in the care and management of this patient. This time is exclusive of procedures, and includes, but is not limited to, evaluation of the patient, review of the medical record, discussions with family, consultants, nursing staff, or respiratory therapy, and documentation in the medical record. Iain Herring MD Sep 08, 2016 11:19
--- NOTE | 2016-09-08 11:41 | RADRPT ---
EXAM DATE/TIME: 09/08/2016 08:25 [facility] COMPARISON: US TRANSCRANIAL DOPPLER COMPLETE, September 07, 2016, 8:17. INDICATIONS : Subarachnoid hemorrhage. MEDICAL HISTORY : Hypertension. Subarachnoid hemorrhage. Respiratory failure. Brain edema. Hydrocephalus. SURGICAL HISTORY : Right and left frontal dennis hole with placement of a ventriculostomy catheter. Right decompressive cr aniectomy. Endotracheal intubation. ENCOUNTER: Subsequent ACUITY: 3 days PAIN SCORE: Nonresponsive. LOCATION: Bilateral cranial Current Ultrasound: Sep 08 2016 [place] Ratio: 4.7 3.6 [place] Ratio: 3.3 2.6 Previous Ultrasound: Sep 07 2016 [place] Ratio: 2.2 1.6 [place] Ratio: 1.2 1.1 FINDINGS: Examination performed at bedside. Real-time ultrasound with the assistance of color and spectral Dop pler was utilized to evaluate the intracerebral circulation. Time-averaged maximal velocities are ca lculated in cm/s. There is an increase in the [place] ratio on the right side which reflects mild to moderate spasm. This is new when compared to the prior study. CONCLUSION: 1. Findings a mild to moderate spasm on the right side. CT angiography is recommended for further gosia luation if clinically indicated. Zechariah West MD on September 08, 2016 at 11:25 Board Certified Radiologist. This report was verified electronically.
[2016-09-08] MEDS ORDERED: EPINEPHrine HCL (1:10,000) 1 MG/10 ML SYRINGE ONE (12:02)
--- NOTE | 2016-09-08 12:20 | RADRPT ---
EXAM DATE/TIME: 09/08/2016 11:55 [facility] COMPARISON: CHEST SINGLE AP, September 06, 2016, 3:37. INDICATIONS : Hypoxia. MEDICAL HISTORY : Hypertension. subarachnoid hemorrhage, respiratory failure SURGICAL HISTORY : None. ENCOUNTER: Initial ACUITY: 3 days PAIN SCORE: Non-responsive. LOCATION: Bilateral chest FINDINGS: The endotracheal tube is in good position. There are bilateral pleural effusions. There is diffuse in terstitial prominence. The exam which suggest congestive failure. Overall appearance of the parenchym a has worsened compared to prior study. The nasogastric tube is in good position. CONCLUSION: 1. Interval development of pleural effusions and interstitial edema suggesting congestive failure. Arnie Knutson MD on September 08, 2016 at 12:17 Board Certified Radiologist. This report was verified electronically.
--- NOTE | 2016-09-08 12:20 | HHI.NSPN ---
(Sarah Thompson) Note Status Status: Progress Note (Sarah Thompson) Interval History Interval History This is a 67 years old female was transferred to [facility] from [facility] for a subarachnoid hemorrhage. She suddenly developed severe headache and then vomited. No seizure activity. No tongue bitting. No tonic clonic movements. no incontinence of stool or urine. CT scan of the brain done at [facility] in [place] shows extensive subarachnoid and intraventricular hemorrhage with early obstructive hydrocephalus. 09/05: s/p placement of ventriculostomy drain, CTA shows right PCOM aneurysm, ICPs <20 09/06: pt underwent endovascular coiling of right PCOM aneurysm yesterday, f/u CT Brain yesterday showed increased SAH with right SDH causing significant midline shift, she underwent emergent decompressive craniectomy with evacuation of SDH, and placement of left ventriculostomy drain. She is on 3% NS, ICPs as high as 21. EVD draning well bloody CSF. 09/07: ICPs 23. Intubated, sedated. EVD draining bloody CSF. Serum sodium 152. pco2 34. 3: ICPs 21-23 overnight, this morning 14. Right flap full and tight. Intubated and well sedated. EVD draining well. (Sarah Thompson) Labs, Micro, & Vital Signs Results Date Time Temp Pulse Resp B/P Pulse Ox O2 Delivery O2 Flow Rate FiO2 09/08/16 08:16 97 60 09/08/16 08:14 97 60 09/08/16 08:00 60 09/08/16 08:00 54 09/08/16 08:00 97.2 54 14 136/63 96 09/08/16 06:00 52 09/08/16 05:51 100 100 09/08/16 04:07 96 35 09/08/16 04:00 53 09/08/16 04:00 35 09/08/16 04:00 98.8 53 14 148/70 96 09/08/16 02:00 56 09/08/16 01:19 95 35 09/08/16 01:19 95 35 09/08/16 00:00 56 09/08/16 00:00 101.2 56 16 157/71 96 09/08/16 00:00 35 09/07/16 22:00 48 09/07/16 20:00 48 09/07/16 20:00 101.3 54 16 160/72 98 09/07/16 20:00 35 09/07/16 19:49 98 35 09/07/16 19:49 98 35 09/07/16 18:00 60 09/07/16 16:17 95 35 09/07/16 16:12 95 35 09/07/16 16:00 50 09/07/16 16:00 40 09/07/16 16:00 98.5 50 17 151/61 96 09/07/16 14:00 52 09/08/16 07:00 Intake Total 7098 ml Output Total 4280 ml Balance 2818 ml Constitutional Vital Signs Date Time Temp Pulse Resp B/P Pulse Ox O2 Delivery O2 Flow Rate FiO2 09/08/16 08:16 97 60 09/08/16 08:14 97 60 09/08/16 08:00 60 09/08/16 08:00 54 09/08/16 08:00 97.2 54 14 136/63 96 09/08/16 06:00 52 09/08/16 05:51 100 100 09/08/16 04:07 96 35 09/08/16 04:00 53 09/08/16 04:00 35 09/08/16 04:00 98.8 53 14 148/70 96 09/08/16 02:00 56 09/08/16 01:19 95 35 09/08/16 01:19 95 35 09/08/16 00:00 56 09/08/16 00:00 101.2 56 16 157/71 96 09/08/16 00:00 35 09/07/16 22:00 48 09/07/16 20:00 48 09/07/16 20:00 101.3 54 16 160/72 98 09/07/16 20:00 35 09/07/16 19:49 98 35 09/07/16 19:49 98 35 09/07/16 18:00 60 09/07/16 16:17 95 35 09/07/16 16:12 95 35 09/07/16 16:00 50 09/07/16 16:00 40 09/07/16 16:00 98.5 50 17 151/61 96 09/07/16 14:00 52 09/08/16 07:00 Intake Total 7098 ml Output Total 4280 ml Balance 2818 ml (Sarah Thompson) Review of Systems/Exam Exam Ms. Lopez is intubated and sedated, she does not open eyes or follow commands. Left ventriculostomy drain at 0 cm H20, draining bloody CSF. Right flap full and tight. Surgical wound clean and dry. Cranial nerve examination: pupils 2 mm bilaterally. Conjugate gaze. Motor: no spontaneous movements Sensorimotor: no withdrawals to pain stimuli x 4 Bilateral plantars silent Cerebellar exam cannot be assessed due to clinical condition (Sarah Thompson ) Medications Current Medications Current Medications Medications (Trade) Dose Ordered Sig/Van Route PRN Reason Start Time Stop Time Status Last Admin Dose Admin Propofol (Diprivan 1000 Mg/100ml Inj) 100 ml @ 0 mls/hr TITRATE IV 09/04/16 23:00 09/08/16 06:55 Artificial Tears (Tears Naturale Opth Soln) 1 drop TID EACH EYE 09/05/16 09:00 09/07/16 18:25 Docusate Sodium (Colace Liq) 100 mg Q12H G-TUBE 09/04/16 00:00 09/08/16 00:52 Miscellaneous Information 1 Q361D XX 09/04/16 23:15 Chlorhexidine Gluconate (Chlorhexidine 2% Cloth) 3 pack Taper DAILY@04 TOP 09/05/16 04:00 09/01/17 03:59 09/08/16 05:39 Chlorhexidine Gluconate 3 pack 3 pack UNSCH PRN TOP HYGIENIC CARE 09/04/16 23:15 Nicardipine HCl/ Sodium Chloride (Cardene Inj/NS 250 ml Inj) 260 ml @ 0 mls/hr TITRATE IV 09/04/16 23:15 Hydralazine HCl 20 mg 20 mg Q4H PRN IV PUSH SBP>160, DBP>90 09/04/16 23:15 Sodium Chloride 500 ml @ 30 mls/hr Q16H IV 09/05/16 00:15 09/08/16 08:15 Fentanyl Citrate 250 ml @ 0 mls/hr TITRATE IV 09/05/16 00:30 09/07/16 21:29 Potassium Chloride 100 ml @ 50 mls/hr Q2H PRN IV For Potassium 2.8 - 3.2 mEq/L 09/05/16 01:45 09/08/16 05:52 Potassium Chloride (KCl 20 Meq Premix Inj) 100 ml @ 50 mls/hr Q2H PRN IV For Potassium 2.8 - 3.2 mEq/L 09/05/16 01:45 Potassium Chloride 40 meq 40 meq UNSCH PRN PO/TUBE For Potassium 3.3 - 3.5 mEq/L 09/05/16 01:45 Potassium Chloride 100 ml @ 25 mls/hr UNSCH PRN IV For Potassium 3.3 - 3.5 mEq/L 09/05/16 01:45 09/07/16 08:12 Potassium Chloride 100 ml @ 50 mls/hr Q2H PRN IV For Potassium 3.3 - 3.5 mEq/L 09/05/16 01:45 Magnesium Sulfate/ Sodium Chloride (Magnesium Sulfate Inj/NS Inj) 100 ml @ 50 mls/hr UNSCH PRN IV For Magnesium 0.9 - 1.1 mg/dL 09/05/16 01:45 Magnesium Oxide 800 mg 800 mg UNSCH PRN PO For Magnesium 1.2 - 1.6 mg/dL 09/05/16 01:45 Magnesium Sulfate/ Sodium Chloride (Magnesium Sulfate Inj/NS Inj) 100 ml @ 50 mls/hr UNSCH PRN IV For Magnesium 1.2 - 1.6 mg/dL 09/05/16 01:45 Potassium Phosphate 2000 mg 2,000 mg Q4H PRN PO For Phosphorus < 2.5 mg/dL 09/05/16 01:45 Sodium Phosphate/ Sodium Chloride (Sodium Phosphate Inj/NS 250 ml Inj) 250 ml @ 42 mls/hr UNSCH PRN IV For Phosphorus < 2.5 mg/dL 09/05/16 01:45 Potassium Chloride (KCl 40 Meq/30 ml Liq) 40 meq UNSCH PRN PO/TUBE SEE LABEL COMMENTS 09/05/16 01:45 09/08/16 05:52 Potassium Phosphate 2000 mg 2,000 mg UNSCH PRN PO/TUBE SEE LABEL COMMENTS 09/05/16 01:45 Potassium Phosphate/Sodium Chloride (Potassium Phosphate Inj/NS 250 ml Inj) 260 ml @ 42 mls/hr UNSCH PRN IV SEE LABEL COMMENTS 09/05/16 01:45 Nimodipine (Nimotop) 60 mg Q4HR PO 09/05/16 04:00 09/08/16 08:00 Pravastatin Sodium (Pravachol) 40 mg DAILY PO 09/05/16 09:00 09/08/16 08:32 Dextrose (D50w (Vial) Inj) 25 ml UNSCH PRN IV PUSH HYPOGLYCEMIA-SEE COMMENTS 09/05/16 07:30 Insulin Human Regular (NovoLIN R SUPPLEMENTAL SCALE) 1 Q6HR SQ 09/05/16 12:00 09/07/16 19:30 IV Flush (NS Flush) 2 ml UNSCH PRN IVF FLUSH AFTER USING IV ACCESS 09/05/16 15:30 IV Flush 2 ml 2 ml BID IVF 09/05/16 21:00 09/08/16 08:32 Levetriacetam/ Sodium Chloride (Keppra Inj/NS Inj) 105 ml @ 400 mls/hr Q12H IV 09/05/16 16:00 09/08/16 04:00 Bisacodyl (Dulcolax Supp) 10 mg DAILY PRN OK CONSTIPATION 09/05/16 15:30 Docusate Sodium (Colace) 100 mg BID PO 09/05/16 21:00 09/08/16 08:32 Pantoprazole Sodium (Protonix Inj) 40 mg DAILY IVP 09/06/16 09:00 09/08/16 08:32 Ondansetron HCl 4 mg 4 mg Q6H PRN IV NAUSEA OR VOMITING 09/05/16 15:30 Potassium Chloride 100 ml @ 50 mls/hr UNSCH PRN IV POTASSIUM LESS THAN 4 09/05/16 15:30 Magnesium Sulfate/ Sodium Chloride (Magnesium Sulfate Inj/NS Inj) 108 ml @ 108 mls/hr UNSCH PRN IV MAGNESIUM LESS THAN 2 09/05/16 15:30 Acetaminophen/ Hydrocodone Bitart ([place] 10-325 Mg) 1 tab Q4H PRN PO PAIN SCALE 1 TO 5 09/05/16 15:30 Acetaminophen/ Hydrocodone Bitart ([place] 10-325 Mg) 2 tab Q4H PRN PO PAIN SCALE 6 TO 10 09/05/16 15:30 Acetaminophen (Tylenol) 650 mg Q4H PRN PO TEMPERATURE > 101.5 F 09/05/16 15:30 09/07/16 08:13 Albumin Human 25 gm 25 gm Q6H IV 09/05/16 20:00 Hold 09/08/16 08:00 Vasopressin 40 units/Sodium Chloride 100 ml @ 6 mls/hr [id number] IV 09/05/16 19:01 09/07/16 22:19 Calcium Gluconate 1 gm/Sodium Chloride 110 ml @ 110 mls/hr UNSCH PRN IV PROTEIN CORRECTED CALCIUM <8.5 09/05/16 21:00 09/07/16 00:42 Phenylephrine HCl 40 mg/Sodium Chloride 500 ml @ 0 mls/hr TITRATE IV 09/06/16 01:30 09/08/16 05:38 Norepinephrine Bitartrate/Sodium Chloride (Levophed Inj/NS 500 ml Inj) 508 ml @ 0 mls/hr TITRATE IV 09/06/16 00:30 09/08/16 05:38 Fludrocortisone Acetate 0.1 mg 0.1 mg Q12HR PO 09/06/16 11:00 Hold 09/08/16 09:00 Midazolam HCl (Versed Inj) 100 ml @ 0 mls/hr TITRATE IV 09/07/16 22:15 09/08/16 06:55 Polyethylene Glycol (Miralax) 17 gm BID PO 09/08/16 11:15 UNV Lactulose (Lactulose Liq) 30 ml BID PO 09/08/16 21:00 UNV (Sarah Thompson) Medical Decision Making MDM Remarks 50 y/o with subarachnoid hemorrhage, right PCOM aneurysm, s/p endovascular coiling 09/05/16 f/u CT Brain 09/05 with extensive SAH, IVH, and right subdural hemorrhage with significant right to left midline shift s/p right decompressive craniectomy with evacuation of SDH, and left ventriculostomy drain placement 09/05/16, (Sarah Thompson) Plan Plan Remarks dw Dr. Herring TCD with spasm, for repeat CTA, CT on nimodipine cont EVD draining Addendum: f/u CT Brain shows large right hemispheric infarct. Dr. Oswald had dw patient's in detail regarding radiological findings and patient's overall prognosis. requested to proceed with comfort measures. Her ventriculostomy drain and AMINATA drains removed, drain sites closed using silk suture. (Sarah Thompson) Attending Statement The exam, history, and the medical decision-making described in the above note were completed with the assistance of the mid-level provider. I reviewed and agree with the findings presented. I attest that I had a [id number] encounter with the patient on the same day, and personally performed and documented my assessment and findings in the medical record. (Jorgito Oswald MD) Sarah Thompson Sep 08, 2016 12:18 Jorgito Oswald MD Sep 09, 2016 08:43
[2016-09-08] MEDS ORDERED: IOHEXOL 350 MG/ML 10 ML VIAL (for RAD DIAG) IV ONE (12:40)
--- NOTE | 2016-09-08 13:24 | RADRPT ---
EXAM DATE/TIME: 09/08/2016 12:18 [facility] COMPARISON: CT BRAIN W/O CONTRAST, September 08, 2016, 12:18. CT BRAIN W/O CONTRAST, September 05, 2016, 13:54. INDICATIONS : Possible vasospasm. IV CONTRAST: 72 cc Omnipaque 350 (iohexol) IV RADIATION DOSE: 57.52 CTDIvol (mGy) MEDICAL HISTORY : None Cerebral artery aneurysm clipping. SURGICAL HISTORY : Craniotomy. ENCOUNTER: Initial ACUITY: 1 day PAIN SCALE: Non-responsive LOCATION: cranial TECHNIQUE: Volumetric scanning was performed using a multi-row detector CT scanner. The data was post processed with a variety of visualization algorithms including full volume maximum intensity projection, multi -planar sliding thin slab reformation, curved planar reformation, and surface rendering techniques. Using automated exposure control and adjustment of the mA and/or kV according to patient size, radiat ion dose was kept as low as reasonably achievable to obtain optimal diagnostic quality images. FINDINGS: Both distal internal carotid arteries are widely patent. Vertebral arteries are patent. The basilar i s patent. The intercranial circulation demonstrates mild vasospasm involving the right A1 and M1 segments. The left M1 segment demonstrates only minimal narrowing. The M3 branches are widely patent bilaterally. T he intercerebral circulation is widely patent. The posterior cerebral circulation is widely patent. The source data demonstrates intraparenchymal hemorrhage involving the right posterior parietal and t emporal cortex. There is streak artifact in the middle cranial fossa from the patient's previous aneurysm coiling. CONCLUSION: 1. There is mild vasospasm involving the M1 and A1 segments on the right and minimal narrowing of the M1 segment on the left. The distal M3 branches are widely patent bilaterally. The anterior circulati on is widely patent. Arnie Knutson MD on September 08, 2016 at 13:11 Board Certified Radiologist. This report was verified electronically.
--- NOTE | 2016-09-08 13:27 | RADRPT ---
EXAM DATE/TIME: 09/08/2016 12:18 [facility] COMPARISON: CT BRAIN W/O CONTRAST, September 05, 2016, 13:54. INDICATIONS : Altered mental status. RADIATION DOSE: 39.12 CTDIvol (mGy) MEDICAL HISTORY : None SURGICAL HISTORY : Craniotomy. Cerebral artery aneurysm clipping. ENCOUNTER: Initial ACUITY: 1 day PAIN SCALE: Non-responsive LOCATION: cranial TECHNIQUE: Multiple contiguous axial images were obtained of the head. Using automated exposure control and adj ustment of the mA and/or kV according to patient size, radiation dose was kept as low as reasonably a chievable to obtain optimal diagnostic quality images. FINDINGS: The examination demonstrates decreased attenuation throughout most of the right hemisphere. There is intraparenchymal hemorrhage involving the right posterior parietal and temporal cortex. The intrapare nchymal hemorrhage is new compared to previous dated 09/05/16. The ventricles are normal in size. A ventriculostomy is in good position. The intraventricular hemorr marva and extensive subarachnoid hemorrhage remain. The left hemisphere and cerebellum appear intact. The right parietal bone has been removed. CONCLUSION: 1. There is decreased attenuation involving nearly the entire right hemisphere suggesting a large are a of cortical infarct. There is a small area of intraparenchymal hemorrhage seen in the right posteri or parietal and occipital cortex on the right. 2. Streak artifact from the patient's previous aneurysm coiling. 3. Extensive subarachnoid hemorrhage. 4. 9 mm of [id number] falcine shift. 5. The right parietal bone has been removed. Arnie Knutson MD on September 08, 2016 at 13:23 Board Certified Radiologist. This report was verified electronically.
--- NOTE | 2016-09-08 17:02 | MG ---
cc: JASON MERCADO M.D. Lab No: [id number] Date: 09/08/2016 Age: Sex: F Race: TECHNIQUE: 17 channel EEG. DESCRIPTION: The background rhythm is abnormal with a severely attenuated background with a burst suppression type of pattern. Amplitude is roughly 1 to 2 microvolts in-between bursts. No lateralizing features are seen. INTERPRETATION: Abnormal study consistent with a severe encephalopathy. MD JOSE RAMON Luna/BRE /4:22 PM /4:55 PM
[2016-09-08] MEDS ORDERED: LACTATED RINGER'S 1000 ML INJ 1,000 ML IV SCH (18:15)
[2016-09-08] MEDS ORDERED: NOREPINEPHRINE INJ 8 MG in DEXTROSE 5% IN WATE 500 ML INJ 500 ML IV SCH ×2 (18:23)
[2016-09-08 18:29] LABS: BLOOD, URINE SMALL (NEG); COMMENT (UR) CULT NOT INDICATED; CULTURE IF INDICATED CULT NOT INDICATED; GLUCOSE,URINE NEG (NEG); KETONE, URINE TRACE mg/dL (NEG); MUCUS URINE FEW /lpf (OCC); NITRITE,URINE NEG (NEG); PH, URINE 5.5 (5.0-8.5); SQUAMOUS EPITHELIAL CELL URINE <1 /hpf (0-5); URINE COLOR YELLOW (YELLW/STRAW)
[2016-09-08 18:33] LABS: AUTOMATED NEUTROPHIL # 16.9 TH/MM3 (1.8-7.7); BASOPHIL # 0.1 TH/MM3 (0-0.2); BASOPHIL % 0.3 % (0.0-2.0); EOSINOPHIL # 0.2 TH/MM3 (0-0.4); HEMATOCRIT 25.5 % (35.0-46.0); HEMO FLAGS DIFF FINAL; LYMPH % 4.9 % (9.0-44.0); LYMPHOCYTE # 0.9 TH/MM3 (1.0-4.8); MEAN CELL VOLUME 91.4 FL (80.0-100.0); MEAN CORPUSCULAR HEMOGLOBIN 30.9 PG (27.0-34.0); MEAN CORPUSCULAR HGB CONC 33.8 % (32.0-36.0); MONO % 4.2 % (0.0-8.0); NEUT % 89.6 % (16.0-70.0); PLATELET COUNT 100 TH/MM3 (150-450); RED BLOOD COUNT 2.79 MIL/MM3 (4.00-5.30); RED CELL DISTRIBUTION WIDTH 13.2 % (11.6-17.2); WHITE BLOOD COUNT 18.8 TH/MM3 (4.0-11.0)
[2016-09-08 18:38] LABS: APTT (PATIENT) 34.6 SEC (24.3-30.1); INTERNATIONAL NORMALIZED RATIO 1.1 RATIO; PROTHROMBIN TIME - PATIENT 12.7 SEC (9.8-11.6)
[2016-09-08] MEDS ORDERED: FUROSEMIDE 40 MG/4 ML VIAL IV PUSH ONE (19:00)
[2016-09-08 19:01] LABS: ALKALINE PHOSPHATASE 67 U/L (45-117); ALT (GPT) 16 U/L (10-53); ANION GAP 6 MEQ/L (5-15); AST (GOT) 20 U/L (15-37); BETA HCG QUANT LESS THAN 1 MIU/ML (0-5); BICARBONATE 24.9 MEQ/L (21.0-32.0); BLOOD UREA NITROGEN 7 MG/DL (7-18); CHLORIDE 126 MEQ/L (98-107); GAMMA GT 39 U/L (5-55); GLOMERULAR FILTRATION RATE 113 ML/MIN (>89); INDIRECT BILIRUBIN 1.4 MG/DL (0.0-0.8); TOTAL BILIRUBIN ADULT 1.8 MG/DL (0.2-1.0)
[2016-09-08 19:13] LABS: AMYLASE 127 U/L (25-115)
[2016-09-08 19:16] LABS: POTASSIUM 2.9 MEQ/L (3.5-5.1); SODIUM (NA) 157 MEQ/L (136-145)
[2016-09-08 21:35] LABS: HEMOGLOBIN A1a 0.9 %; HEMOGLOBIN A1b 0.9 %; HEMOGLOBIN Ao 86.4 %; HEMOGLOBIN F 0.7 %; HEMOGLOBIN LA1C 2.1 %; HEMOGLOBIN P3 3.4 %
[2016-09-08] MEDS ORDERED: HEPARIN SODIUM - SQ 10,000 UNITS/ML VIAL IVF PRN (21:45)
--- NOTE | 2016-09-08 22:44 | RADRPT ---
EXAM DATE/TIME: 09/08/2016 22:12 [facility] COMPARISON: No previous studies available for comparison. INDICATIONS : Left breast abscess vs palpable mass. MEDICAL HISTORY : Hypertension. Subarachnoid hemorrhage. Respiratory failure. Brain edema. Hydrocephalus. SURGICAL HISTORY : Right and left frontal dennis hole with placement of a ventriculostomy catheter. Right decompressive cr aniectomy. Endotracheal intubation. ENCOUNTER: Initial ACUITY: 1 day PAIN SCORE: Nonresponsive. LOCATION: Left breast. FINDINGS: There is a large approximate 2.7 cm solid mass at 10: 00 position 4-5 cm from the nipple. CONCLUSION: Left breast mass highly suspicious for malignancy. Ruth Mueller MD on September 08, 2016 at 22:41 Board Certified Radiologist. This report was verified electronically.
[2016-09-08] MEDS: ceFAZolin 1,000 MG/NS 100 ML IV SCH ×2 (23:16)
[2016-09-08 23:17] LABS: BLOOD GAS BASE EXCESS -0.2 mmol/L (-2-2); BLOOD GAS CARBOXYHEMOGLOBIN 1.3 % (0-4); BLOOD GAS HCO3 22 mmol/L (22-26); BLOOD GAS O2 HGB SATURATION 97 % (90-100); BLOOD GAS OXYGEN CONTENT 11.8 Vol % (12.0-20.0); BLOOD GAS PCO2 27 mmHg (38-42); BLOOD GAS PO2 126 mmHg (61-120); BLOOD GAS TOTAL HGB 8.5 G/DL (12.0-16.0); TEMP CORR TO 98.6
[2016-09-08] MEDS: LACTULOSE SYRUP 20 GM/30 ML CUP PO SCH (23:17)
[2016-09-08 23:23] LABS: CRITICAL VALUE YES; OXYGEN DEVICE VENTILATOR
[2016-09-08 23:24] LABS: DRAW SITE ART LINE; FIO2 100 %; STAT YES; VENT SETTINGS AC14/450/PEEP5
[2016-09-09] VITALS (9 sets, daily range): BP systolic 147–161; BP diastolic 69–75; PULSE 0–79; RESP 20–28; TEMP 100.4–102; O2SAT 100
[2016-09-09] MEDS ORDERED: fentaNYL 2,500 MCG/NS 250 ML IV SCH ×3 (01:00→23:45)
[2016-09-09 04:30] LABS: HEMATOCRIT 24.5 % (35.0-46.0); MEAN CELL VOLUME 89.8 FL (80.0-100.0); MEAN CORPUSCULAR HGB CONC 34.5 % (32.0-36.0); PLATELET COUNT 109 TH/MM3 (150-450); RED BLOOD COUNT 2.73 MIL/MM3 (4.00-5.30); RED CELL DISTRIBUTION WIDTH 12.8 % (11.6-17.2); REVIEW FLAG FINAL
[2016-09-09] MEDS: CHLORHEXIDINE GLUCONATE 2 % 1 PACK (2 CLOTHS) TOP SCH (04:30)
[2016-09-09] MEDS: ceFAZolin 1,000 MG/NS 100 ML IV SCH ×2 (06:00)
[2016-09-09] MEDS: INSULIN NovoLIN REGULAR SUPPLEMENTAL SCALE SQ SCH ×2 (06:00)
[2016-09-09] MEDS ORDERED: LORazepam 2 MG/ML VIAL IV ONE ×2 (08:30→15:45)
[2016-09-09] MEDS ORDERED: MORPHINE SULFATE 8 MG/ML INJ IV PUSH ONE (08:30)
[2016-09-09] MEDS: ARTIFICIAL TEARS OPTH SOLN 15 ML BTL EACH EYE SCH ×2 (08:34→13:00)
[2016-09-09] MEDS: LACTULOSE SYRUP 20 GM/30 ML CUP PO SCH (08:34)
[2016-09-09] MEDS: ACETAMINOPHEN 325 MG TAB PO PRN (08:35)
[2016-09-09] MEDS: LORazepam 2 MG/ML VIAL IV PRN ×8 (11:30→12:39)
[2016-09-09] MEDS: MORPHINE SULFATE 4 MG/ML INJ IV PRN ×6 (11:30→12:19)
[2016-09-09] MEDS ORDERED: fentaNYL DRIP 250 ML IV SCH (12:30)
[2016-09-09] MEDS: HYDROmorphone HCL PF 4 MG/ML VIAL IV PUSH PRN ×2 (12:30→12:39)
[2016-09-09] MEDS ORDERED: ACETAMINOPHEN 650 MG SUPP PR PRN (15:45)
[2016-09-09] MEDS ORDERED: MORPHINE SULFATE 4 MG/ML INJ IV ONE (15:45)
--- NOTE | 2016-10-02 15:12 | HHI.DS ---
Summary Note Date of : Sep 09, 2016 Time Of : 12:52 Admission Date Sep 04, 2016 at 22:58 Admitting Diagnosis Subarachnoid hemorrhage Diagnosis at Time of : Brief History 50 year old female who presents to the [facility] emergency department with a severe headache that began prior to arrival at [facility] emergency department. The patient's headache was reportedly severe and associated with nausea and vomiting and a decreased level of consciousness, therefore the patient was intubated. She underwent a CT scan of the brain that showed a subarachnoid hemorrhage and was accepted for transfer by Dr. Oswald, the neurosurgeon on-call. Imaging Last [address] 09/05/16 0000 Signed Impressions: Service Date/Time: Monday, September 05, 2016 13:54 - CONCLUSION: 1. The patient is post coiling of a right P-comm aneurysm. 2. There is extensive subdural, subarachnoid and intraventricular hemorrhage. The overall amount of intraventricular hemorrhage has increased when compared to the previous exam. The amount of right to left falcine shift has increased when compared to previous as well. 3. The perimesencephalic cisterns appear similar to previous dated 09/05/16. Arnie Knutson MD Embolization, Transcatheter 09/05/16 0000 Signed Impressions: Service Date/Time: Monday, September 05, 2016 11:12 - CONCLUSION: 1. Successful coiling of the patient's posterior communicating artery aneurysm. There was complete exclusion of the aneurysm from the circulation at the conclusion of the procedure. Arnie Knutson MD Hospital Course 50 year old female who presents to the [facility] emergency department with a severe headache that began prior to arrival at [facility] emergency department. The patient's headache was reportedly severe and associated with nausea and vomiting and a decreased level of consciousness, therefore the patient was intubated. She underwent a CT scan of the brain that showed a subarachnoid hemorrhage and was accepted for transfer by Dr. Oswald, the neurosurgeon on-call. 09/05: taken to IR for coiling of aneurysm. however, before coiling took place, ICPs suddenly elevated, followed by severe hypertension, bradycardia, and pupilary change. emergently controlled bp, continued to move forward with coiling. IR with good coiling outcome. post-coiling CT head demonstrates re- bleed with significant mass effect on the 3rd and 4th ventricles. taken emergently to OR for right decompressive hemicraniectomy. 09/06: overnight, significantly hypotensive. added vasopressin and phenylephrine. still on levo as well. ICP controlled. this morning, withdrawing on right, nothing on left. stat echo overnight hyperdynamic, otherwise normal. uop almost 600cc/hr. attempting to maintain euvolemia. 09/07: ICPs yony yesterday evening and overnight. sedated to control. Na 152 this AM. poor neuro exam. still remains in distributive shock on 3 pressors. minimal improvements. 09/08: ICPs continued to be high throughout yesterday, requiring addition of versed and fentanyl to propofol. some hemodynamic improvements. still very critical. TCDs yesterday improving, however today Dr. West called to say TCD today shows probable spasm. ordering stat CT/CTA brain. updated at bedside. In addition to significant vasospasm on CT/CTA, there was overwhelming evidence of cerebral infarction including the right cerebral hemisphere and areas of left hemisphere as well. Dr. Oswald and myself had a long discussion with the , and he states she would overwhelmingly not want to live in any capacity where she was at all healthcare dependent or dependent on anyone else for her activities of daily living. With this information, he elected to withdraw care. We terminally extubated the patient and she at 12:52 on 09/09. Iain Herring MD Oct 02, 2016 15:12
--- NOTE | 2016-10-02 15:13 | DEATH SUM ---
Pronouncement Date Pronounced : Sep 09, 2016 Time Of : 12:52 Pronouncement Called to pronounce of patient. Identified patient as Talita Perez with wrist band MR# [id number]. Patient with no cardiac activity in 2 separate leads and no palpable/auscible cardiac activity. Patient with no spontaneous respirations, no corneal reflex or response to painful stimuli. Pupils fixed and dilated. Preliminary Cause of : Cardiac arrest Iain Herring MD Oct 02, 2016 15:12
== END 2016-09-09 14:14 | disposition expired | DRG 20 ==
LOC: NEPE 22:40 → NEDA 22:58 → N03A 23:05
PROVIDERS: ADMIT Internal Medicine Critical Care Medicine; ATTEND Internal Medicine Critical Care Medicine
PROC: 03LG3DZ Occlusion of Intracranial Artery with Intraluminal Device, Percutaneous Approach (ICD-10-PCS; 2016-09-05)
PROC: 00Q20ZZ Repair Dura Mater, Open Approach (ICD-10-PCS; 2016-09-05)
PROC: 009630Z Drainage of Cerebral Ventricle with Drainage Device, Percutaneous Approach (ICD-10-PCS; 2016-09-05)
PROC: 009630Z Drainage of Cerebral Ventricle with Drainage Device, Percutaneous Approach (ICD-10-PCS; 2016-09-05)
PROC: 00P Central Nervous System and Cranial Nerves, Removal (ICD-10-PCS; 2016-09-05)
PROC: 5A1955Z Respiratory Ventilation, Greater than 96 Consecutive Hours (ICD-10-PCS; 2016-09-05)
PROC: 03HY32Z Insertion of Monitoring Device into Upper Artery, Percutaneous Approach (ICD-10-PCS; 2016-09-05)
PROC: 00C40ZZ Extirpation of Matter from Intracranial Subdural Space, Open Approach (ICD-10-PCS; principal; 2016-09-05 14:52)
PROC: 30233N1 Transfusion of Nonautologous Red Blood Cells into Peripheral Vein, Percutaneous Approach (ICD-10-PCS; 2016-09-07)
DX: I60.31 Nontraumatic subarachnoid hemorrhage from right posterior communicating artery (principal); J96.01 Acute respiratory failure with hypoxia; G93.5 Compression of brain; J96.02 Acute respiratory failure with hypercapnia; G93.6 Cerebral edema; N17.9 Acute kidney failure, unspecified; D62 Acute posthemorrhagic anemia; E27.40 Unspecified adrenocortical insufficiency; E44.1 Mild protein-calorie malnutrition; G91.1 Obstructive hydrocephalus; I16.1 Hypertensive emergency; I67.848 Other cerebrovascular vasospasm and vasoconstriction; E83.51 Hypocalcemia; I10 Essential (primary) hypertension; I62.01 Nontraumatic acute subdural hemorrhage; D72.829 Elevated white blood cell count, unspecified; E87.6 Hypokalemia; R73.9 Hyperglycemia, unspecified; Z68.28 Body mass index [BMI] 28.0-28.9, adult
CPT/HCPCS: 36224; 36430; 36556; 61210; 61624; 70450; 70496; 71010; 75894; 76642; 76937; 80048; 80053; 80076; 81001; 81003; 82150; 82533; 82805; 82945; 82948; 82977; 83036; 83690; 83735; 83930; 84100; 84155; 84157; 84295; 84439; 84443; 84702; 85025; 85027; 85379; 85384; 85610; 85730; 86850; 86900; 86901; 86920; 87040; 87070; 87086; 87205; 87641; 88304; 89051; 93306; 93886; 94002; 94003; 94664; 94770; 95819; 99285; A0431-QM-HH; A0436-QM-HH; C1760; C1769; C1887; C1894; C9113; G0269; J0171; J0461; J0610; J0690; J1170; J1580; J1644; J1940; J1953; J2060; J2150; J2250; J2270; J2370; J2720; J3010; J3370; J3480; J7030; J7040; J7050; J7120; P9016; P9045; Q9967